=== PATIENT | male | born 1985 | race Caucasian/White ===

== ENCOUNTER 2017-02-08 11:39 | Emergency (ER) | payer OTHER ==
[~2017-02-08] VITALS: Ht 175.3 cm; Wt 111.9 kg
[2017-02-08 11:40] VITALS: TEMP 36.8; Ht 175.3 cm; Wt 111.9 kg
[2017-02-08] MEDS ORDERED: KETOROLAC TROMETHAMINE 30 MG/ML VIAL IV STA (12:26)
[2017-02-08] MEDS ORDERED: SODIUM CHLORIDE 0.9% 1000ML 1,000 ML IV STA (12:26)
--- NOTE | 2017-02-08 12:44 | DIAGNOSTIC IMAGING REPORT ---
SINGLE VIEW CHEST CLINICAL HISTORY: Atypical chest pain. FINDINGS: An AP, portable, upright chest radiograph is obtained No prior studies are available for comparison at the time of dictation. The heart is top normal for projection. The mediastinal contour is within normal limits. The lungs and pleural spaces are clear. No pneumothorax is seen. The bony thorax is grossly intact. IMPRESSION: No active disease in the chest. Electronically signed by: Tommy Martinez M.D. 02/08/2017 12:43 PM Dictated Date/Time: 02/08/2017 12:43 PM
[2017-02-08 12:52] LABS: HEMATOCRIT 45.7 % (42-52); MEAN CORPUSCULAR HEMOGLOBIN 31.7 pg (25-34); MEAN CORPUSCULAR HGB CONC 35.2 g/dl (32-36); MEAN PLATELET VOLUME 8.8 fL (7.4-10.4); PLATELET COUNT 435 K/uL (130-400); RED BLOOD COUNT 5.08 M/uL (4.7-6.1); WHITE BLOOD COUNT 9.71 K/uL (4.8-10.8)
[2017-02-08 13:08] LABS: BUN/CREATININE RATIO 2.7 (10-20); CALCIUM 9.1 mg/dl (8.5-10.1); CREATININE 1.2 mg/dl (0.60-1.40); POTASSIUM 3.6 mmol/L (3.5-5.1)
[2017-02-08 13:11] LABS: BENZODIAZEPINE, URINE NEG (NEG); COCAINE,URINE NEG (NEG); PHENCYCLIDINE, URINE POS (NEG)
[2017-02-08 13:19] LABS: THYROID STIMULATING HORMONE 1.2 uIu/ml (0.300-4.500)
[2017-02-08] MEDS ORDERED: PENICILLIN V POTASSIUM 250 MG TAB PO ONE (15:15)
[2017-02-08] MEDS ORDERED: HYDR-5688 PO (15:40)
[2017-02-08] MEDS ORDERED: PENI500T2 PO (15:40)
--- NOTE | 2017-02-08 15:42 | EMERGENCY ROOM VISIT NOTE ---
ED Visit Note First contact with patient: 12:02 CHIEF COMPLAINT: Chronic dental pain, radiating into her throat and chest. 2 days HISTORY OF PRESENT ILLNESS: Patient is a 31-year-old white male who presents to emergency department for evaluation of uncontrollable dental pain. He reports a history of chronic dental pain going back roughly 10 years. He states he has noted increasing pain, particularly from his upper central incisors over the last 48 hours. He notes blood and pus draining from the mouth. He states that the pain was radiating slightly to his neck/throat yesterday, but began to radiated into his right chest pain. He feels like he gags on occasion, but denies any difficulty swallowing. He has tried taking ibuprofen for his symptoms. He also used Orajel. He states that he recently pulled a tooth on his own. He had a consultation on [facility] a few years ago but he could not afford to have all of the teeth extracted. He has not been on antibiotics for about 2 years. He reports that he has been sick with cold and upper respiratory symptoms and has been using Coricidin and NyQuil. He does admit to frequent marijuana use, he smoked last last evening. He reports a history of asthma which is generally well controlled. He does smoke. He rates his dental pain a 9/10. REVIEW OF SYSTEMS: Review of systems as per HPI. All other systems reviewed were negative. 10 systems reviewed. PMH: Electronic medical records are reviewed and summarized as above/below. See Problem List. SOCIAL HISTORY: Patient lives at home. He is unemployed. Smokes cigarettes and marijuana. Denies alcohol use. PHYSICAL EXAM: Vital Signs: Reviewed Nurse's notes. Blood pressure in triage was 185/124. Remainder of the vital signs were stable. CONSTITUTIONAL: Patient is a diaphoretic 31-year-old white male who is awake and alert and in no acute distress. Vital signs are stable. EARS: Tympanic membranes intact, not inflamed, have normal contour. External canals clear. MOUTH: Overall the patient has poor dentition. Most of his teeth are grossly carious and fractured. The upper central incisors are eroded and fractured to the gumline. He has chronic gingival inflammation. No focal abscess. Mucous membranes moist, no lesions, tongue and gums appear normal. THROAT: No pharyngeal injection, exudates, or tonsillar hypertrophy. Airway is patent. No trismus noted. FACE: No facial swelling is appreciated. No cellulitic changes. NECK: No lymphadenopathy. HEART: Regular rate and rhythm. LUNGS: Clear to auscultation. ED course: The patient was seen and evaluated as above. He presents emergency department for evaluation of uncontrolled chronic dental pain. He reported some associated chest pain. He was noted to be diaphoretic. EKG was as noted below. Chest x-ray was unremarkable. CBC, BMP and TSH were within normal limits. The patient was medicated with a liter of normal saline solution, and given Toradol 30 mg IV and Pen-Vee K 500 mg orally. On reassessment, he reported that his symptoms had improved. He rated his pain a 0/10 at discharge. His symptoms appear to be related to his uncontrolled dental pain. He had relief with Toradol. He will be placed on antibiotics and was given [place] to use for severe pain until he can follow up with a dentist or oral surgeon. He does not have any evidence for facial cellulitis, Corwin's angina or drainable abscess at this time. Patient was reviewed in the [facility] Prescription Drug Monitoring Program, and there were no red flags noted. EKG: Normal sinus rhythm 79 beats per minute, no ectopy or acute ischemic changes. SINGLE VIEW CHEST CLINICAL HISTORY: Atypical chest pain. FINDINGS: An AP, portable, upright chest radiograph is obtained No prior studies are available for comparison at the time of dictation. The heart is top normal for projection. The mediastinal contour is within normal limits. The lungs and pleural spaces are clear. No pneumothorax is seen. The bony thorax is grossly intact. IMPRESSION: No active disease in the chest. Problem List Medical Problems: (1) Asthma Status: Chronic (2) Stomach problems Status: Chronic Current/Historical Medications Scheduled Penicillin V Potassium (Veetids), 500 MG PO QID Scheduled PRN Hydrocodone/Acetaminophen 5MG/325MG (Den[place] 5MG/325MG), 1-2 TABLETS PO Q4 PRN for Pain Allergies Coded Allergies: No Known Allergies (Unverified , 02/08/17) Vital Signs Date Time Temp Pulse Resp B/P Pulse Ox O2 Delivery O2 Flow Rate FiO2 02/08/17 15:54 68 20 159/112 96 Room Air 02/08/17 13:49 76 20 146/92 96 Room Air 02/08/17 12:54 79 02/08/17 11:40 36.8 95 18 185/124 98 Room Air Laboratory Results 02/08/17 12:40 02/08/17 12:40 Test 02/08/17 12:40 Red Blood Count 5.08 M/uL (4.7-6.1) Mean Corpuscular Volume 90.0 fL (80-100) Mean Corpuscular Hemoglobin 31.7 pg (25-34) Mean Corpuscular Hemoglobin Concent 35.2 g/dl (32-36) RDW Standard Deviation 43.8 fL (36.4-46.3) RDW Coefficient of Variation 13.4 % (11.5-14.5) Mean Platelet Volume 8.8 fL (7.4-10.4) Anion Gap 5.0 mmol/L (3-11) Est Creatinine Clear Calc Drug Dose 108.0 ml/min Estimated GFR () 91.5 Estimated GFR (Non- 79.0 BUN/Creatinine Ratio 2.7 (10-20) Calcium Level 9.1 mg/dl (8.5-10.1) Thyroid Stimulating Hormone (TSH) 1.200 uIu/ml (0.300-4.500) Urine Opiates Screen NEG (NEG) Urine Methadone, Qualitative NEG (NEG) Urine Barbiturates NEG (NEG) Ur Amphetamine/Methamphetamine NEG (NEG) MDMA (Ecstasy) Screen NEG (NEG) Urine Benzodiazepines Screen NEG (NEG) Urine Cocaine Metabolite NEG (NEG) Urine Marijuana (THC) POS (NEG) Medications Administered Medications (Trade) Dose Ordered Sig/John Route Start Time Stop Time Status Last Admin Dose Admin Ketorolac Tromethamine 30 mg 30 mg NOW STAT IV 02/08/17 12:26 02/08/17 12:30 DC 02/08/17 12:45 30 MG Sodium Chloride (Nss 1000ml) 1,000 ml @ 999 mls/hr Q1H1M STAT IV 02/08/17 12:26 02/08/17 13:26 DC 02/08/17 12:44 999 MLS/HR Penicillin V Potassium (Veetids Tab) 500 mg ONE ONCE PO 02/08/17 15:15 02/08/17 15:16 DC 02/08/17 15:17 500 MG Departure Information Impression Primary Impression: Chronic dental pain Prescriptions Hydrocodone/Acetaminophen 5MG/325MG ([place] 5MG/325MG) Tab 1-2 TABLETS PO Q4 Y for Pain, #15 TAB For Initial Treatment Prov: Clementina Tran PA 02/08/17 Penicillin V Potassium (VEETIDS) 500 Mg Tab 500 MG PO QID, #40 TAB Prov: Clementina Tran PA 02/08/17 Referrals No Doctor, Assigned (PCP) Patient Instructions My [facility] Additional Instructions Penicillin 500mg: Take one pill four times daily for 10 days for your dental infection. All antibiotics can cause diarrhea. If this occurs and you feel worse or it does not resolve in 1-2 days follow up with your doctor or return to the Emergency Department as this could be signs of serious underlying problems. Any medication can cause an allergic reaction, stop the pills immediately and return to the ER for rash, hives, breathing difficulties, or swelling. Ibuprofen(Motrin, Advil) may be used for fever or pain. Use 600mg every six hours as needed. Take with food. Avoid using more than 2400mg in a 24 hour period. Do not use 2400mg per day for more than three consecutive days without physician direction. Prolonged inappropriate use can lead to stomach upset or ulcers. (AND/OR) Acetaminophen(Tylenol) may be used for fever or pain. Use 1000mg every six hours as needed. Avoid using more than 4000mg in a 24 hour period. Hydrocodone/Acetaminophen ([place]) 5/325 mg: Take 1-2 pills every four hours for breakthrough pain. Avoid alcohol, operating machinery or dangerous equipment, working on ladders or roofs, DRIVING, or situations where being under the influence may be dangerous. It is recommended to use an [id number] stool softener such as Colace, 100mg twice daily while taking this medication to avoid constipation. Saltwater gargles after meals and before bedtime. Soft foods. Orajel/Anbesol/clove oil as needed for discomfort. Followup with your dentist for definitive management. You may also follow up with your primary care physician for pain/care management until you can be seen by your dentist.
[2017-02-08 15:54] VITALS: BP 159/112; PULSE 68; O2SAT 96
[2017-02-11 12:55] LABS: PHENCYCLIDINE GC/MS NEGATIVE NG/ML (CUTOFF=25)
[2017-08-17] MEDS ORDERED: LISI5TAB PO (10:58)
[2017-08-17] MEDS ORDERED: AMOX500C3 PO (10:58)
[2017-08-17] MEDS ORDERED: GLC/500 PO (10:58)
[2017-08-17] MEDS ORDERED: IBUP-1050 PO (10:59)
[2017-08-17] MEDS ORDERED: PRLSR20 PO (10:59)
== END 2017-02-08 16:09 | disposition home or self-care (01) ==
LOC: C.EDB 11:41 → C.EDC 16:09
DX: K08.89 Other specified disorders of teeth and supporting structures (principal); G89.29 Other chronic pain; F17.200 Nicotine dependence, unspecified, uncomplicated; F12.10 Cannabis abuse, uncomplicated; J45.909 Unspecified asthma, uncomplicated

== ENCOUNTER 2017-05-08 21:39 | Emergency (ER) | payer SELFPAY ==
[~2017-05-08] VITALS: Ht 182.9 cm; Wt 104.1 kg
[~2017-05-08 21:39] MED LIST: HYDR-5688 PO
[2017-05-08 21:51] VITALS: TEMP 36.7; Ht 182.9 cm; Wt 104.1 kg
[2017-05-08] MEDS ORDERED: PRLSR20 PO (22:10)
[2017-05-08] MEDS ORDERED: KETOROLAC TROMETHAMINE 60 MG/2 ML VIAL IM STA (22:11)
[2017-05-08] MEDS ORDERED: OXYCODONE IR HOME PACK PO ONE (22:15)
[2017-05-08] MEDS ORDERED: PENICILLIN V POTASSIUM 250 MG TAB PO ONE (22:15)
--- NOTE | 2017-05-08 22:16 | EMERGENCY ROOM VISIT NOTE ---
History Report prepared by Marlyn: Niranjan Thomas Under the Supervision of: Dr. Vasyl Fernandez M.D. First contact with patient: 21:57 Chief Complaint: DENTAL PAIN Stated Complaint: SEVERE PAIN FROM BAD TEETH Nursing Triage Summary: Patient ambulatory to triage, complaining of generalized dental pain, states "They started going bad a long time ago and have caused problems ever since." Patient was referred to [facility] in Dec. Patient has not seen the dentist yet. History of Present Illness The patient is a 32 year old male who presents to the Emergency Room with complaints of constant, worsening dental pain beginning a few months ago. The patient states that he has had bad teeth for years. He reports that he was seen in the ER for a similar symptoms. The patient notes that he has been trying to go [employer] and get an appointment with a dentist. He states that he does not have a dentist because he does not have insurance. The patient reports that he has been taking ibuprofen, but he could not take the pain anymore. He notes that he can not sleep or work. The patient states that he has migraines, fevers, pain when chewing, and seeing bright flashes of light. He denies chills , and trouble with speaking and swallowing. The patient notes that he smokes, uses alcohol occasionally, and uses marijuana. Source of History: patient Onset: few months ago Position: teeth Timing: constant, worsening Modifying Factors (Worsening): other (chewing) Associated Symptoms: + fevers, + headache, No chills Note: Associated symptoms: pain when chewing and seeing bright flashes of light He denies trouble with speaking and swallowing. Review of Systems See HPI for pertinent positives & negatives. A total of 10 systems reviewed and were otherwise negative. Past Medical & Surgical Medical Problems: (1) Asthma (2) Stomach problems Surgical Problems: (1) History of tonsillectomy and adenoidectomy Old medical records were reviewed. Nurse's notes were reviewed and I agree with. Family History FH: lung disease FHx: cancer Social History Smoking Status: Current Every Day Smoker Alcohol Use: occasionally Drug Use: marijuana Housing Status: lives with family Current/Historical Medications Scheduled Omeprazole (Prilosec), 20 MG PO DAILY Penicillin V Potassium (Veetids), 1 TAB PO QID Scheduled PRN Oxycodone Immediate Rel Tab (Roxicodone Ir), 1-2 TAB PO Q4H PRN for Severe Pain Allergies Coded Allergies: No Known Allergies (Unverified , 05/08/17) Physical Exam Vital Signs Date Time Temp Pulse Resp B/P (MAP) Pulse Ox O2 Delivery O2 Flow Rate FiO2 05/08/17 22:39 92 18 143/99 98 05/08/17 21:51 36.7 94 20 147/105 99 Room Air Physical Exam General: Non-ill appearing, no distress, young male, able to speak normally, breathing comfortably on room air. Normal speech HEENT: Normal cephalic atraumatic. Pupils are equal round and reactive to light. Extraocular movements are intact. Oropharynx is pink with moist mucous membranes. No abscess or Corwin angina, multiple advance dental caries. No swelling of the mouth lips or tongue. Neck: Supple with a midline trachea. No meningeal signs or stiffness, no JVD or bruits. No Stridor. Chest: Clear to auscultation bilaterally. No wheezes or rhonchi. No increased work of breathing. Heart: regular rate and rhythm. Abdomen: Soft nontender, nondistended without rebound guarding or rigidity. Extremities: No cyanosis clubbing or edema. No calf tenderness or assymetry Spine/Back. Non tender to palpation. No CVA tenderness Skin: Good turgor without rashes. Neurologic exam: Cranial nerves two through 12 are intact. Motor and sensation are intact and symmetrical throughout. Medical Decision & Procedures Medications Administered Medications (Trade) Dose Ordered Sig/John Route Start Time Stop Time Status Last Admin Dose Admin Ketorolac Tromethamine (Toradol Inj) 60 mg NOW STAT IM 05/08/17 22:11 05/08/17 22:13 DC 05/08/17 22:19 60 MG Penicillin V Potassium (Veetids Tab) 500 mg ONE ONCE PO 05/08/17 22:15 05/08/17 22:16 DC 05/08/17 22:19 500 MG Oxycodone HCl (Roxicodone Immediate Rel 5MG Home Pack) 1 homepack UD ONCE PO 05/08/17 22:15 05/08/17 22:16 DC 05/08/17 22:18 1 HOMEPACK ED Course 2156: Past medical records reviewed. The patient was evaluated in room B12B, and a complete history and physical examination were performed. 2210: Ordered Toradol Inj 60mg IM 2214: Ordered Oxycodone HCl 1 homepack PO, Veetids Tab 500mg PO 2215: Upon reevaluation, the patient is resting. I discussed the results and treatment plan with him. He verbalized agreement of the treatment plan. The patient was discharged home. Medical Decision Differential diagnosis includes: dental caries, infection, abscess Medication Reconciliation: I attest that I have personally reviewed the patient' s current medication list. Blood Pressure Screening: Patient was found to have a slightly elevated blood pressure due to circumstances. I do not believe that the patient requires hypertension monitoring. This patient comes in as described above . he has very poor dentition and multiple of as dental caries many of which need to be pulled. He's had some pain. He is trying to get in with a dentist at [facility]. On exam, he has no evidence to suggest abscess or Corwin's angina. I will put on Pen-Vee K, the first dose was given here, as well as a prescription. He was also given Toradol 60 mg IM and I encouraged him to continue using ibuprofen for breakthrough pain. He was given a prescription for OxyIR 5 mg, one or 2 pills every 4-6 hours as needed. He was warned that that OxyIR could make him drowsy and do not take for drinking, driving, working. He should return if: increasing pain , worsening of symptoms, shortness ofbreath, any new problems or concerns and have close follow-up with [facility]/dentistry. He was happy with the plan and was discharged to home. Impression Primary Impression: Tooth ache Additional Impression: Dental caries Scribe Attestation The scribe's documentation has been prepared under my direction and personally reviewed by me in its entirety. I confirm that the note above accurately reflects all work, treatment, procedures, and medical decision making performed by me. Departure Information Dispostion Home / Self-Care Prescriptions Penicillin V Potassium (VEETIDS) 500 Mg Tab 1 TAB PO QID for 10 Days, #40 TAB Prov: Vasyl Fernandez M.D. 05/08/17 Oxycodone Immediate Rel Tab (ROXICODONE IR) 5 Mg Tab 1-2 TAB PO Q4H Y for Severe Pain, #24 TAB Prov: Vasyl Fernandez M.D. 05/08/17 Referrals No Doctor, Assigned (PCP) Forms HOME CARE DOCUMENTATION FORM, IMPORTANT VISIT INFORMATION Patient Instructions My [facility] Additional Instructions Rest. Drink plenty of fluids. For pain, use ibuprofen 400 mg every 6 hours, take with food For more severe pain, use OxyIR 5 mg, one or 2 pills every 4-6 hours as needed OxyIR may make you drowsy- do not take before drinking, driving, working Return if: Increasing pain, worsening of symptoms, fever or chills, any new problems or concerns. Use Pen-Vee K 500 mg 4 times a dayantibiotic Follow-up with your dentist/[facility] this week for recheck. You will likely need multiple teeth pulled Problem Qualifiers
[2017-05-08] MEDS ORDERED: OXYC1TAB3 PO (22:23)
[2017-05-08] MEDS ORDERED: PENI500T2 PO (22:23)
[2017-05-08 22:39] VITALS: BP 143/99; PULSE 92; O2SAT 98
[2017-08-17] MEDS ORDERED: AMOX500C3 PO (10:58)
[2017-08-17] MEDS ORDERED: LISI5TAB PO (10:58)
[2017-08-17] MEDS ORDERED: GLC/500 PO (10:58)
[2017-08-17] MEDS ORDERED: IBUP-1050 PO (10:59)
[2017-08-17] MEDS ORDERED: PRLSR20 PO (10:59)
== END 2017-05-08 22:40 | disposition home or self-care (01) ==
LOC: C.EDB 21:41
DX: K08.89 Other specified disorders of teeth and supporting structures (principal); K02.9 Dental caries, unspecified; J45.909 Unspecified asthma, uncomplicated; F17.200 Nicotine dependence, unspecified, uncomplicated; F12.90 Cannabis use, unspecified, uncomplicated

== ENCOUNTER → 2017-08-24 | Day surgery (SDC) | payer SELFPAY ==
[2017-08-17 11:00] VITALS: BMI 31.0
[~2017-08-24] VITALS: Ht 182.9 cm; Wt 102.7 kg
[~2017-08-24] MED LIST changes: +AMOX500C3 PO; +GLC/500 PO; -HYDR-5688 PO; +IBUP-1050 PO; +LIDOCAINE HCL 2% 2 ML VIAL (20MG/ML) ONE; +LISI5TAB PO; +MIDAZOLAM HCL 1 MG/ML 2ML VIAL ONE; +PRLSR20 PO; +PROPOFOL IV EMULSION 10 MG/ML 20 ML VIAL IV ONE; +SODIUM CHLORIDE 0.9% 500ML 500 ML IV ONE
[2017-08-24 10:09] VITALS: Ht 182.9 cm; Wt 102.7 kg
--- NOTE | 2017-08-24 10:31 | Endo History and Physical ---
History & Physical Date of Service: Aug 24, 2017. Chief Complaint: abd pain; rectal bleeding Referring Physician: KEV Jason History of Present Illness abd pain and rectal bleeding Past Surgical History Hx Cardiac Surgery: No Hx Internal Defibrillator: No Hx Pacemaker: No Hx Abdominal Surgery: No Hx of Implantable Prosthesis: No Hx Post-Op Nausea and Vomiting: No Hx Cancer Surgery: No Hx Thoracic Surgery: No Hx Orthopedic: No Hx Urinary Tract Surgery: No Family History None Social History Smoking Status: Current Every Day Smoker Hx Substance Use: Yes (MARIJUANA USE "EVERY COUPLE OF DAYS") Hx Alcohol Use: Yes (OCCASIONAL) Allergies Coded Allergies: No Known Allergies (Unverified , 08/24/17) Current Medications Reported Home Medications Medications Dose Route/Sig Max Daily Dose Days Date Category Advil (Ibuprofen) 200 Mg Tab 200-600 Mg PO Q4H PRN 08/17/17 Reported Prilosec (Omeprazole) 20 Mg Capcr 20 Mg PO DAILY PRN 08/17/17 Reported Prinivil (Lisinopril) 5 Mg Tab 5 Mg PO QAM 08/17/17 Reported Glucophage (Metformin Hcl) 500 Mg Tab 500 Mg PO QPM 08/17/17 Reported Vital Signs Weight (Kilograms): 102.73 Height (Feet): 6 Height (Inches): 0 Date Time Temp Pulse Resp B/P (MAP) Pulse Ox O2 Delivery O2 Flow Rate FiO2 08/24/17 10:19 36.9 92 18 126/84 (98) 92 Room Air Physical Exam General Appearance: WD/WN, no apparent distress Assessment and Plan EGD and colonoscopy today
--- NOTE | 2017-08-24 11:19 | GI REPORT ---
Procedure Date: 08/24/2017 10:16 AM Procedure: Upper GI endoscopy Indications: Epigastric abdominal pain Medicines: Propofol per Anesthesia Complications: No immediate complications. Estimated blood loss: None. Estimated Blood Loss: Estimated blood loss: none. Procedure: Pre-Anesthesia Assessment: - Prior to the procedure, a History and Physical was performed, and patient medications, allergies and sensitivities were reviewed. The patient's tolerance of previous anesthesia was reviewed. - The risks and benefits of the procedure and the sedation options and risks were discussed with the patient. All questions were answered and informed consent was obtained. - Patient identification and proposed procedure were verified prior to the procedure by the physician and the nurse. The procedure was verified in the pre-procedure area in the procedure room. - Mental Status Examination: alert and oriented. Airway Examination: normal oropharyngeal airway and neck mobility. Respiratory Examination: clear to auscultation. CV Examination: normal. Abdominal Examination: bowel sounds present, abdomen soft and non-tender, no masses or organomegaly noted. - ASA Grade Assessment: III - A patient with severe systemic disease. After obtaining informed consent, the endoscope was passed under direct vision. Throughout the procedure, the patient's blood pressure, pulse, and oxygen saturations were monitored continuously. The scope was introduced through the mouth, and advanced to the second part of duodenum. The upper GI endoscopy was accomplished without difficulty. The patient tolerated the procedure well. Findings: The esophagus was normal. The stomach was normal. The examined duodenum was normal. Impression: - Normal esophagus. - Normal stomach. - Normal examined duodenum. - No specimens collected. Recommendation: - Follow an antireflux regimen. STOP DRINKING MT. DEW - Continue present medications. - Return to primary care physician as previously scheduled. - Discharge patient to home. Darshana Martin D.O. Darshana Martin DO 08/24/2017 11:19:02 AM This report has been signed electronically. Note Initiated On: 08/24/2017 10:16 AM I attest to the content of the Intraoperative Record and orders documented therein, exceptions below
--- NOTE | 2017-08-24 11:21 | GI REPORT ---
Procedure Date: 08/24/2017 10:17 AM Procedure: Colonoscopy Indications: Rectal bleeding Medicines: Propofol per Anesthesia Complications: No immediate complications. Estimated blood loss: None. Estimated Blood Loss: Estimated blood loss: none. Procedure: Pre-Anesthesia Assessment: - Prior to the procedure, a History and Physical was performed, and patient medications, allergies and sensitivities were reviewed. The patient's tolerance of previous anesthesia was reviewed. - The risks and benefits of the procedure and the sedation options and risks were discussed with the patient. All questions were answered and informed consent was obtained. - Patient identification and proposed procedure were verified prior to the procedure by the physician and the nurse. The procedure was verified in the pre-procedure area in the procedure room. - Mental Status Examination: alert and oriented. Airway Examination: normal oropharyngeal airway and neck mobility. Respiratory Examination: clear to auscultation. CV Examination: normal. Abdominal Examination: bowel sounds present, abdomen soft and non-tender, no masses or organomegaly noted. - ASA Grade Assessment: III - A patient with severe systemic disease. After I obtained informed consent, the scope was passed under direct vision. Throughout the procedure, the patient's blood pressure, pulse, and oxygen saturations were monitored continuously. The scope was introduced through the anus and advanced to the terminal ileum. The colonoscopy was performed without difficulty. The patient tolerated the procedure well. The quality of the bowel preparation was good. Findings: The perianal and digital rectal examinations were normal. Pertinent negatives include normal sphincter tone and no palpable rectal lesions. The terminal ileum appeared normal. Internal hemorrhoids were found during retroflexion. The hemorrhoids were medium-sized and Grade I (internal hemorrhoids that do not prolapse). Impression: - The examined portion of the ileum was normal. - Internal hemorrhoids. - No specimens collected. Recommendation: - Return to primary care physician as previously scheduled. - Discharge patient to home. Darshana Martin D.O. Darshana Martin DO 08/24/2017 11:21:03 AM This report has been signed electronically. Note Initiated On: 08/24/2017 10:17 AM I attest to the content of the Intraoperative Record and orders documented therein, exceptions below
--- NOTE | 2017-08-24 11:34 | Discharge Instructions ---
Endoscopy Patient Instructions Date / Procedure(s) Performed Aug 24, 2017. Colonoscopy, EGD Allergy Information Coded Allergies: No Known Allergies (Unverified , 08/24/17) Discharge Date / Findings Aug 24, 2017. normal EGD; internal hemorrhoids Medication Instructions Restart Stopped Medication(s): OK to resume home medications Avoid anti-inflammatory medications as much as possible (ibuprofen, Aleve, etc) Provider Instructions Activity Restrictions - No exercising or heavy lifting for 24 hours. - Do not drink alcohol the day of the procedure. - Do not drive a car or operate machinery until the day after the procedure. - Do not make any important decisions or sign important papers in 24 hours after the procedure. Following Day: - Return to full activity which may include returning to work/school. Diet Start your diet with liquids and light foods (jello, soup, juice, toast). Then eat your usual diet if not nauseated. STOP DRINKING MT. DEW and all other caffeinated/carbonated beverages. Treatment For Common After Affects For mild abdominal pain, bloating, or excessive gas: - Rest - Eat lightly - Lie on right side Follow-Up Information Follow-up with [facility] as scheduled Anesthesia Information What You Should Know You have had a procedure that required some medicine to reduce anxiety and discomfort. This treatment is called moderate sedation. After receiving the treatment, you may be sleepy, but you will be able to breathe on your own. The effects of the treatment may last for several hours. Follow these instructions along with Activity/Diet recommendations noted above: * Do NOT do anything where dizziness or clumsiness would be dangerous. * Rest quietly at home today, then you can be up and about tomorrow. * Have a responsible person stay with you the rest of today. * You may have had an I.V. today. If so, you may take the dressing off later today. Recommendations Call your doctor if: * Trouble breathing * Continuous vomiting for more than 24 hours * Temperature above 101 degrees * Severe abdominal pain or bloating * Pain not relieved by pain medicine ordered * There is increased drainage or redness from any incision * A large amount of rectal bleeding greater than 2-3 tablespoons. (If you had a polyp/s removed or have hemorrhoids, a small amount of blood - from the rectum is to be expected.) * You have any unanswered questions or concerns. IN THE EVENT OF A SERIOUS EMERGENCY, GO TO THE NEAREST EMERGENCY ROOM Your discharge instructions were prepared by provider Darshana Martin. Patient Instructions Signature Page Asad Crowe Patient (or Guardian) Signature/Date: I have read and understand the instructions given to me by my caregivers. Caregiver/RN/Doctor Signature/Date: The above-named patient and/or guardian has received patient instructions on this date. + Original Patient Signature Page (only) stays with chart. Please make copy for patient.
--- NOTE | 2017-08-24 11:41 | Anesthesiology Progress Note ---
Anesthesia Post Op Note Date & Time Aug 24, 2017 at 11:41 Vital Signs Pain Intensity: 0 Vital Signs Past 12 Hours Date Time Temp Pulse Resp B/P (MAP) Pulse Ox O2 Delivery O2 Flow Rate FiO2 08/24/17 11:32 65 16 124/77 (93) 97 Oxymask 6 08/24/17 11:24 74 16 120/82 (95) 95 Oxymask 6 08/24/17 11:17 85 14 110/85 (93) 94 Room Air 08/24/17 10:19 36.9 92 18 126/84 (98) 92 Room Air Notes Mental Status: alert / awake / arousable, participated in evaluation Pt Amnestic to Procedure: Yes Nausea / Vomiting: adequately controlled Pain: adequately controlled Airway Patency, RR, SpO2: stable & adequate BP & HR: stable & adequate Hydration State: stable & adequate Anesthetic Complications: no major complications apparent Doing well. Had a vagal episode during procedure that resolved without intervention. VSS
[2017-08-24 11:47] VITALS: BP 131/96; PULSE 71; O2SAT 98
== END | disposition home or self-care (01) ==
LOC: C.GI 09:50 → EDSTATUS 10:15 → C.GI 10:17
PROVIDERS: ATTEND Internal Medicine
DX: K62.5 Hemorrhage of anus and rectum (principal); R10.13 Epigastric pain; E66.9 Obesity, unspecified; I10 Essential (primary) hypertension; J45.909 Unspecified asthma, uncomplicated; Z68.31 Body mass index [BMI] 31.0-31.9, adult; E11.9 Type 2 diabetes mellitus without complications; Z90.89 Acquired absence of other organs

== ENCOUNTER 2019-09-17 10:38 | Observation (INO) ==
[2019-09-17] MEDS ORDERED: LIDO/EPINEPHRINE/SOD BICARB 20 ML VIAL ONE (12:01)
[2019-09-17] MEDS ORDERED: VANCOMYCIN HCL 2,500 MG in SODIUM CHLORIDE 0.9% 500 ML IV ONE (12:08)
[2019-09-17] MEDS ORDERED: VANCOMYCIN CONSULT ACTIVE PRN ×2 (12:08→16:09)
[2019-09-17] MEDS ORDERED: cefTRIAXone SODIUM 1,000 MG/50 ML BAG IV STA (12:08)
[2019-09-17] MEDS ORDERED: SODIUM CHLORIDE 0.9% 1000ML 2,000 ML IV ONE (12:08)
[2019-09-17 12:38] LABS: Basophils # (auto) 0.06 K/uL (0-0.2); Basophils % (auto) 0.4 %; Eosinophils # (auto) 0.13 K/uL (0-0.5); Eosinophils % (auto) 0.9 %; Hematocrit (blood only) 44.8 % (42-52); Hemoglobin 15.8 g/dL (14.0-18.0); Immature Granulocytes # (auto) 0.04 K/uL (0.00-0.02); Immature Granulocytes % (auto) 0.3 %; Lymphocytes # (auto) 3.73 K/uL (1.2-3.4); Lymphocytes % (auto) 25.3 %; Mean Corpuscular Hemoglobin 31.9 pg (25-34); Mean Corpuscular Hgb Conc 35.3 g/dL (32-36); Mean Corpuscular Volume 90.5 fL (80-100); Mean Platelet Volume 9.5 fL (7.4-10.4); Monocytes # (auto) 1.32 K/uL (0.11-0.59); Monocytes % (auto) 8.9 %; Neutrophils # (auto) 9.48 K/uL (1.4-6.5); Neutrophils % (auto) 64.2 %; Platelet Count 367 K/uL (130-400); RDW Coefficient of Variation 12.8 % (11.5-14.5); RDW Standard Deviation 42.1 fL (36.4-46.3); Red Blood Count 4.95 M/uL (4.7-6.1); White Blood Count 14.76 K/uL (4.8-10.8)
[2019-09-17 12:47] LABS: Partial Thromboplastin Time 26.8 Seconds (21.0-31.0); Prothrombin Time 10.1 Seconds (9.0-12.0)
[2019-09-17 13:08] LABS: Albumin Globulin Ratio 0.9 (0.9-2); Albumin Level 4.1 gm/dl (3.4-5.0); BUN Creatinine Ratio 3.3 (10-20); Bilirubin,Total 0.6 mg/dl (0.2-1); Calcium 9.9 mg/dl (8.5-10.1); Creatinine Clr Calc Pharmacy 103.8 ml/min; Est GFR (African American) 89.6; Est GFR (Non-African American) 77.3; Globulin 4.8 gm/dl (2.5-4.0); Potassium 3.3 mmol/L (3.5-5.1); Total Protein 8.9 gm/dl (6.4-8.2)
[2019-09-17] MEDS ORDERED: POTASSIUM CHLORIDE 20 MEQ TABCR PO STA (13:09)
[2019-09-17] MEDS ORDERED: POTASSIUM CHLORIDE / WTR 10 MEQ/100 ML PLCT IV ONE (13:09)
[2019-09-17] MEDS ORDERED: NovoLIN-R INSULIN PER UNIT CHARGE IV STA (13:10)
[2019-09-17] MEDS ORDERED: MoRPHine SULFATE 4 MG/ML 1 ML CARP\\VIAL IV STA (13:31)
--- NOTE | 2019-09-17 13:34 | History & Physical Report ---
Date of Service September 17, 2019 Assessment & Plan (1) Cellulitis of back: We will start the patient on IV vancomycin and Rocephin and also doxycycline. Consult infectious disease. Check wound culture. Check blood cultures. Present on Admission?: Yes (2) Tick bite of back: Check Lyme serology. ID consulted. Patient started on doxycycline. (3) Type 2 diabetes mellitus: Add Sliding-scale insulin per protocol with Accu-Cheks q. before meals and at bedtime Present on Admission?: Yes (4) Hypothyroidism: Continue Synthroid Present on Admission?: Yes (5) Hypertension: Continue home medications. Add IV hydralazine PRN basis for uncontrolled hypertension. Present on Admission?: Yes (6) Hyperglycemia due to type 1 diabetes mellitus: Add gentle IV fluids. Continue sliding-scale insulin. (7) Hypokalemia: Add potassium supplements. (8) Noncompliance with medication regimen: Patient advised regarding compliance of medications. (9) Tobacco abuse: Smoking cessation advised. Does not want to use nicotine patch. No intention to quit smoking. Present on Admission?: Yes (10) GERD (gastroesophageal reflux disease): Continue Zantac. Present on Admission?: Yes (11) Hyperlipidemia: Continue with Lipitor. Present on Admission?: Yes (12) Leucocytosis: Secondary to underlying cellulitis and abscess of back We will repeat labs in a.m. Present on Admission?: Yes History of Present Illness Chief Complaint: Swelling and redness and lesion of the back Primary Care Provider: Ramsey Celis, The patient is 34-year-old male who went for hunting last Monday. When he came back home his father noticed a tick on his back and removed it. After that he noticed worsening redness, swelling and pain of the right upper back. His symptoms continued to get worse. The patient has not been taking his home medication for 2 days as he was not feeling well. He presented to the ER today., he was found to be having cellulitis and possible abscess of the back. Wound cultures were sent. He was started on IV antibiotics and will be admitted for further evaluation and management. His blood sugar and blood pressure has been running high, probably because he has not taken his home medications, and medication noncompliance. Allergies Allergy/AdvReac Type Severity Reaction Status Date / Time No Known Allergies Allergy Unverified 09/17/19 13:11 Home Medications Home Medications Medication Instructions Recorded Confirmed Type atorvastatin 20 mg PO HS 07/11/19 09/17/19 History metformin 500 mg PO BIDM 07/11/19 09/17/19 History lisinopril 20 mg tablet 20 mg PO DAILY #90 tab 09/04/19 09/17/19 Rx levothyroxine 75 mcg PO QPM 09/17/19 09/17/19 History ranitidine HCl [Zantac] 150 mg PO BID PRN 09/17/19 09/17/19 History Past Med/Surg History Medical History Diabetes Hypertension Surgical History History of adenoidectomy History of oral surgery History of tonsillectomy Family History Grandmother (Maternal) Cancer Grandfather Myocardial infarction Lung cancer Drug abuse Other Kidney disease Social History Preferred Language: Tanzanian Communication Ability: Effective Dietician Required: No Beliefs That Will Affect Care: None marital status: Single Current Living Situation: Parent Current Living Situation Comment: w/ father current occupational status: unemployed Other Information That Helps Us Care for You: No Feels Safe at Home: Yes Safety Concerns: Feels Safe At This Time Smoking Status: Current every day smoker Tobacco Type: cigarettes ; Age Started Using Tobacco: 11 ; packs per day: 2 ; Cigarettes Per Day: 40 ; Do You Dip or Chew Tobacco: No ; Second Hand Exposure: No ; Tobacco Cessation Education Requested by Patient: No Hx Alcohol Use: Yes Alcohol type: beer and hard liquor Alcohol Intake Frequency: Rarely Hx Substance Use: Yes substance use type: marijuana Last Used Substance: Unknown Last Used Substance Other:: history of use Childhood Exposure to Second-Hand Smoke: Yes Dental Care, Regularly: Yes Review of Systems Review of Systems: All systems reviewed & are unremarkable except as noted in HPI & below Integumentary: + rash, + lesions and + erythema Physical Exam Physical Exam: GENERAL : No acute distress EYES: No icterus, gaze conjugate NOSE: No evidence of epistaxis MOUTH: No lesions or candidiasis, mucosa moist NECK: Supple LUNGS: CTA B/L, no wheezes, rales or rhonchi HEART: Regular, rate controlled ABDOMEN: Soft, NT, ND, BS Present EXTREMITIES: No LE edema, pedal pulses intact NEURO: A&OX3 Back examination reveals cellulitis and possible underlying abscess on the upper back right side Results & Data Vital Signs (Past 12 Hours) Vital Signs Temp Pulse Pulse Resp BP BP Pulse Ox 09/17/19 13:07 98.8 F 89 22 152/110 H 98 09/17/19 10:41 98.4 F 97 H 18 165/100 H 98 Laboratory Results 09/17/19 12:16 09/17/19 12:16 PG Care Time/CCT Total # of Minutes Spent Total Time Spent with Patient: Total time spent is greater than 50% in coordination of care (as documented) at patient's floor/unit and/or counseling patient:
[2019-09-17] MEDS ORDERED: ALUMINUM/MAGNESIUM SUSP 30 ML UDC PO PRN (16:09)
[2019-09-17] MEDS ORDERED: MAGNESIUM HYDROXIDE SUSP 30 ML UDC PO PRN (16:09)
[2019-09-17] MEDS ORDERED: ONDANSETRON INJ 2 MG/ML 2 ML VIAL IV PRN (16:09)
[2019-09-17] MEDS ORDERED: cefTRIAXone SODIUM 1,000 MG in DEXTROSE 5% 50 ML IV SCH (16:09)
[2019-09-17] MEDS ORDERED: POLYETHYLENE (MIRALAX) 17 GM PACK PO PRN (16:09)
[2019-09-17] MEDS ORDERED: ACETAMINOPHEN 325 MG TAB PO PRN (16:09)
[2019-09-17] MEDS ORDERED: ZOLPIDEM TARTRATE 5 MG TAB PO PRN (16:09)
[2019-09-17] MEDS ORDERED: HydrALAZINE HCL 20 MG/ML VIAL IV PRN (16:09)
[2019-09-17 16:43] LABS: Lyme Ab IgG w/WB Rflx Negative (Negative); Lyme Ab IgM w/WB Rflx Negative (Negative)
[2019-09-17] MEDS ORDERED: GLUCOSE 10 TABS/TUBE PO PRN (16:45)
[2019-09-17] MEDS ORDERED: GLUCAGON FOR INJ 1 MG VIAL IM PRN (16:45)
[2019-09-17] MEDS ORDERED: CARBOHYDRATES FOR HYPOGLYCEMIA PO PRN (16:45)
[2019-09-17] MEDS ORDERED: DEXTROSE 50% 50 ML SYRINGE IV PRN (16:45)
[2019-09-17] MEDS ORDERED: GLUCOSE 40% GEL 15 GM TUBE PO PRN (16:45)
[2019-09-17] MEDS ORDERED: TRAMADOL HCL 50 MG TABLET PO PRN (16:58)
[2019-09-17] MEDS ORDERED: IBUPROFEN 200 MG TAB PO PRN (16:59)
--- NOTE | 2019-09-17 17:01 | Pharmacy Report ---
Pharmacy Abx Initial Consult - Date of Service September 17, 2019 - Pharmacy Dosing Scope Date of Consult: 09/17/19 Consultation requested by: Dr. Murdock Pharmacy is consulted to initiate VANCOMYCIN IV/PO dosing therapy, order appropriate labs and adjust drug dose/frequency. - Subjective The patient is a 34 year old M admitted on 09/17/19 13:25. - Objective Height: 6 ft Weight: 99.1 kg Vital Signs (Past 12hrs): Vital Signs Temp Pulse Pulse Resp BP BP Pulse Ox 09/17/19 15:50 37.4 C 88 18 142/95 H 97 09/17/19 15:28 37.5 C 81 20 126/92 97 09/17/19 13:07 37.1 C 89 22 152/110 H 98 09/17/19 10:41 36.9 C 97 H 18 165/100 H 98 Lab Results (24hrs): Laboratory Tests (24 Hours) 09/17/19 09/17/19 12:16 12:16 WBC 14.76 H Neut # (Auto) 9.48 H Creatinine 1.20 Est Cr Clr Drug Dosing 103.8 Micro Results: 09/17/19 Unknown Gram Stain - Final Back Wound Culture - Pending 09/17/19 12:27 Aerobic Blood Culture - Pending Blood Anaerobic Blood Culture - Pending 09/17/19 12:16 Aerobic Blood Culture - Pending Blood Anaerobic Blood Culture - Pending - Assessment & Plan Assessment 34 year old M receiving VANCOMYCIN/ROCEPHIN/DOXYCYCLINE for back cellulitis/abscess s/p tick bite. Plan VANCOMYCIN for treatment of CELLULITIS/ABSCESS Vancomycin IV * Estimated PK Parameters: Vd 0.7L/kg, Kraig 0.090 hr-1, t1/2 ~8 hr * Loading dose: 2500mg (25 mg/kg) * Maintenance dose: 1500mg IV (15 mg/kg) every 10 hours * Goal trough level for CELLULITIS : 15 to 20 mcg/mL * Trough level ordered for 09/18/19 @ 1900. Pharmacy will continue to follow and will adjust dose/frequency as necessary. Thank you.
--- NOTE | 2019-09-17 17:05 | Emergency Department Note ---
Entered by Joellen Stevens acting as a scribe for Walt Phelps DO History of Present Illness General Chief complaint: Bite Stated complaint: TICK BITE, PAIN, FEVER, TIM Source: patient History of Present Illness Provider complaint: skin pain on back Onset (ago): day(s) 4 Location: back Radiation: non-radiation Pain Consistency: + constant Maximum Pain Intensity: 9 Quality: + other (sore ) Exacerbated By: + other (touch) Associated symptoms: + denies other symptoms The patient is a 34 y/o male with a past medical history of diabetes and hypertension, who presents to the emergency department for evaluation of constant pain to skin on back that began 4 days ago. The patient states that he was hunting on Monday and when he came [place] there was a tick on his back that his father pulled off. The patient states that when the tick was removed there was no redness or pain. For the past two days he notes an intermittent fever and the area swelling. He also states that his whole base of his right foot went numb last night which has yet to resolve. The patient states he has had a little cough and sneezing since the fever started. He reports a mild headache currently. The patient denies urinary symptoms, abdominal pain, and any other symptoms. Home Medications Home Medications Medication Instructions Recorded Confirmed Type atorvastatin 20 mg PO HS 07/11/19 09/17/19 History metformin 500 mg PO BIDM 07/11/19 09/17/19 History lisinopril 20 mg tablet 20 mg PO DAILY #90 tab 09/04/19 09/17/19 Rx levothyroxine 75 mcg PO QPM 09/17/19 09/17/19 History ranitidine HCl [Zantac] 150 mg PO BID PRN 09/17/19 09/17/19 History Allergies Allergy/AdvReac Type Severity Reaction Status Date / Time No Known Allergies Allergy Unverified 09/17/19 13:11 Past Med/Surg History Medical History Diabetes Hypertension Surgical History History of adenoidectomy History of oral surgery History of tonsillectomy Family History Grandmother (Maternal) Cancer Grandfather Myocardial infarction Lung cancer Drug abuse Other Kidney disease Social History Preferred Language: Nepali Communication Ability: Effective Document Image Technician Required: No Beliefs That Will Affect Care: None marital status: Single Current Living Situation: Parent Current Living Situation Comment: w/ father current occupational status: unemployed Feels Safe at Home: Yes Smoking Status: Current every day smoker Tobacco Type: cigarettes ; Age Started Using Tobacco: 11 ; packs per day: 2 ; Cigarettes Per Day: 40 ; Second Hand Exposure: No ; Hx Alcohol Use: Yes Alcohol type: beer and hard liquor Alcohol Intake Frequency: Rarely Hx Substance Use: Yes substance use type: marijuana Last Used Substance: Unknown Childhood Exposure to Second-Hand Smoke: Yes Dental Care, Regularly: Yes Review of Systems See HPI for pertinent positives & negatives. and A total of 10 systems reviewed and were otherwise negative Physical Exam Vital Signs Vital Signs - 24 hr 09/17/19 10:41 09/17/19 12:23 09/17/19 13:07 Temperature 36.9 C 37.1 C Temperature Source Oral Oral Sepsis Recent Fever Within 48 Hours No Sepsis New/Unexplained Change in Mental Status No Sepsis Action Taken by Nursing No Action Required Pulse Rate 97 H Pulse Rate [Right Finger] 89 Pulse Rhythm [Right Finger] Regular Pulse Strength [Right Finger] Normal Respiratory Rate 18 22 Respiratory Effort / Characteristics Non-Labored Spontaneous Respiratory Depth Normal Respiratory Pattern Regular Blood Pressure 165/100 H Blood Pressure [Right Arm] 152/110 H Blood Pressure Mean 121 Blood Pressure Mean [Right Arm] 124 Pulse Oximetry 98 98 Oxygen Delivery Method Room Air Room Air Room Air GENERAL: Sitting up in bed, diaphoretic, talking in full sentences EYE EXAM: normal conjunctiva. OROPHARYNX: no exudate, no erythema, lips, buccal mucosa, and tongue normal and mucous membranes are moist NECK: supple, no nuchal rigidity, no adenopathy, non-tender LUNGS: Clear to auscultation. Normal chest wall mechanics HEART: Tachycardic, no murmurs, S1 normal and S2 normal ABDOMEN: abdomen soft, non-tender, normo-active bowel sounds, no masses, no rebound or guarding. BACK: Back is symmetrical on inspection and there is no deformity, no midline tenderness, no CVA tenderness. 10cm by 10cm with an area of 4 cm by 5 cm with multiple pustules and induration. On medial to right scapula. SKIN: no rashes and no bruising UPPER EXTREMITIES: upper extremities are grossly normal. LOWER EXTREMITIES: No pitting edema. NEURO EXAM: Normal sensorium, cranial nerves II-XII intact, normal speech, no weakness of arms, no weakness of legs. Course ED COURSE: Vital signs were reviewed and showed hypertensive The patients medical record was reviewed The above diagnostic studies were performed and reviewed. ED treatments and interventions as stated above. 1156: The patient was evaluated in room C05. A complete history and physical examination was performed. 1314: I spoke with Dr. Eloy SNOWDEN. Will evaluate with further management. 1317: Upon reevaluation, the patient is feeling a bit better. I discussed my findings with the patient and he understands and agrees with the treatment plan. Based on the patients age, coexisting illnesses, exam and lab findings the decision to treat as an inpatient was made. The patient remained stable while under my care. The patient will be evaluated for further management. Administered Medications Discontinued Medications Sodium Chloride (Nss 1000ml) 2,000 mls @ 999 mls/hr IV .Q2H1M ONE Stop: 09/17/19 14:08 Last Infusion: 09/17/19 15:13 Dose: 0 mls/hr Documented by: [id number] Admin: 09/17/19 12:40 Dose: 999 mls/hr Documented by: [id number] Vancomycin HCl 2,500 mg/ (Sodium Chloride) 550 mls @ 200 mls/hr IV NOW ONE Stop: 09/17/19 14:52 Last Infusion: 09/17/19 15:28 Dose: 0 mls/hr Documented by: [id number] Admin: 09/17/19 12:40 Dose: 200 mls/hr Documented by: [id number] Ceftriaxone Sodium (Rocephin) 1,000 mg in 50 mls @ 100 mls/hr IV NOW STA Stop: 09/17/19 12:37 Last Infusion: 09/17/19 13:30 Dose: 0 mls/hr Documented by: [id number] Admin: 09/17/19 12:48 Dose: 100 mls/hr Documented by: [id number] Potassium Chloride (K Bebeto / Wtr) 10 meq in 100 mls @ 100 mls/hr IV ONE ONE Stop: 09/17/19 14:08 Last Infusion: 09/17/19 14:31 Dose: 0 mls/hr Documented by: [id number] Admin: 09/17/19 13:28 Dose: 100 mls/hr Documented by: [id number] Insulin Human Regular (Novolin R U-100 Per Unit) 6 units IV NOW STA Stop: 09/17/19 13:11 Last Admin: 09/17/19 13:25 Dose: 6 units Documented by: [id number] Cosigned by: [id number] Lidocaine/Epinephrine (Buffered Xylocaine/Epinephrine 1%) Confirm Administered Dose 20 ml .ROUTE .STK-MED ONE Stop: 09/17/19 12:02 Last Admin: 09/17/19 12:48 Dose: Not Given Documented by: [id number] Morphine Sulfate (Morphine Sulfate) 4 mg IV NOW STA Stop: 09/17/19 13:32 Last Admin: 09/17/19 13:36 Dose: 4 mg Documented by: [id number] Potassium Chloride (Klor-Con M20) 40 meq PO NOW STA Stop: 09/17/19 13:10 Last Admin: 09/17/19 13:28 Dose: 40 meq Documented by: [id number] Medical Decision Making Differential Diagnosis Differential diagnosis: Etiologies such as sepsis, UTI, pneumonia, bacteremia, metabolic process, electrolyte abnormalities, cardiac sources, intracerebral event, intra-abdominal process, toxicological process, neurologic process, as well as others were entertained. Medical Records Attestation: I reviewed the patient's medical records. Home Medications Current Medication List: was personally reviewed by me Laboratory Data Attestation: I reviewed the patient's lab results. Result diagrams: 09/17/19 12:16 09/17/19 12:16 Lab Results 09/17/19 09/17/19 09/17/19 Range/Units 12:16 12:16 12:16 WBC 14.76 H (4.8-10.8) K/uL RBC 4.95 (4.7-6.1) M/uL Hgb 15.8 (14.0-18.0) g/dL Hct 44.8 (42-52) % MCV 90.5 (80-100) fL MCH 31.9 (25-34) pg MCHC 35.3 (32-36) g/dL RDW Std Deviation 42.1 (36.4-46.3) fL RDW Coeff of Sravani 12.8 (11.5-14.5) % Plt Count 367 (130-400) K/uL MPV 9.5 (7.4-10.4) fL Immature Gran % (Auto) 0.3 % Neut % (Auto) 64.2 % Lymph % (Auto) 25.3 % [place] % (Auto) 8.9 % Eos % (Auto) 0.9 % Baso % (Auto) 0.4 % Immature Gran # (Auto) 0.04 H (0.00-0.02) K/uL Neut # (Auto) 9.48 H (1.4-6.5) K/uL Lymph # (Auto) 3.73 H (1.2-3.4) K/uL [place] # (Auto) 1.32 H (0.11-0.59) K/uL Eos # (Auto) 0.13 (0-0.5) K/uL Baso # (Auto) 0.06 (0-0.2) K/uL PT 10.1 (9.0-12.0) Seconds INR 1.0 (0.9-1.1) APTT 26.8 (21.0-31.0) Seconds PTT Ratio 1.0 Sodium 130 L (136-145) mmol/L Potassium 3.3 L (3.5-5.1) mmol/L Chloride 95 L (98-107) mmol/L Carbon Dioxide 27 (21-32) mmol/L Anion Gap 7.0 (3-11) BUN 4 L (7-18) mg/dl Creatinine 1.20 (0.6-1.4) mg/dl Est Cr Clr Drug Dosing 103.8 ml/min Est GFR ( Amer) 89.6 Est GFR (Non-Af Amer) 77.3 BUN/Creatinine Ratio 3.3 L (10-20) Glucose 427 H* (70-99) mg/dl Lactate (0.4-2.0) mmol/L Calcium 9.9 (8.5-10.1) mg/dl Total Bilirubin 0.6 (0.2-1) mg/dl AST 21 (15-37) U/L ALT 57 (12-78) U/L Alkaline Phosphatase 130 H (45-117) U/L Total Protein 8.9 H (6.4-8.2) gm/dl Albumin 4.1 (3.4-5.0) gm/dl Globulin 4.8 H (2.5-4.0) gm/dl Albumin/Globulin Ratio 0.9 (0.9-2) Beta-Hydroxybutyric Acd 1.00 (0.2-2.81) mg/dl Lyme Disease IgG Ab (Negative) Lyme Disease IgM Ab (Negative) 09/17/19 09/17/19 Range/Units 12:16 12:16 WBC (4.8-10.8) K/uL RBC (4.7-6.1) M/uL Hgb (14.0-18.0) g/dL Hct (42-52) % MCV (80-100) fL MCH (25-34) pg MCHC (32-36) g/dL RDW Std Deviation (36.4-46.3) fL RDW Coeff of Sravani (11.5-14.5) % Plt Count (130-400) K/uL MPV (7.4-10.4) fL Immature Gran % (Auto) % Neut % (Auto) % Lymph % (Auto) % [place] % (Auto) % Eos % (Auto) % Baso % (Auto) % Immature Gran # (Auto) (0.00-0.02) K/uL Neut # (Auto) (1.4-6.5) K/uL Lymph # (Auto) (1.2-3.4) K/uL [place] # (Auto) (0.11-0.59) K/uL Eos # (Auto) (0-0.5) K/uL Baso # (Auto) (0-0.2) K/uL PT (9.0-12.0) Seconds INR (0.9-1.1) APTT (21.0-31.0) Seconds PTT Ratio Sodium (136-145) mmol/L Potassium (3.5-5.1) mmol/L Chloride (98-107) mmol/L Carbon Dioxide (21-32) mmol/L Anion Gap (3-11) BUN (7-18) mg/dl Creatinine (0.6-1.4) mg/dl Est Cr Clr Drug Dosing ml/min Est GFR ( Amer) Est GFR (Non-Af Amer) BUN/Creatinine Ratio (10-20) Glucose (70-99) mg/dl Lactate 2.3 H* (0.4-2.0) mmol/L Calcium (8.5-10.1) mg/dl Total Bilirubin (0.2-1) mg/dl AST (15-37) U/L ALT (12-78) U/L Alkaline Phosphatase (45-117) U/L Total Protein (6.4-8.2) gm/dl Albumin (3.4-5.0) gm/dl Globulin (2.5-4.0) gm/dl Albumin/Globulin Ratio (0.9-2) Beta-Hydroxybutyric Acd (0.2-2.81) mg/dl Lyme Disease IgG Ab Negative (Negative) Lyme Disease IgM Ab Negative (Negative) Blood Pressure Blood Pressure Findings: Elevated blood pressure Blood Pressure Disposition: further management by hospitalist EMANUEL Narrative Patient is a 34-year-old male who presents the ER for pain in his right scapula associate with fevers. Upon evaluation he is diaphoretic and ill-appearing. On exam he has a clear abscess with surrounding cellulitis on his right upper back as there are small superficial pustules present. He notes he pulled off a tick from his back and he could not of been on for longer than 1 hour per the patient. IV was established blood work was obtained and showed a leukocytosis of 14,000. No significant anemia. INR was unremarkable. BMP with hyponatremia at 130 and hypokalemia 3.3. CO2 was normal at 27 with a sugar of 427. Lactate was elevated at 2.3. LFTs bilirubin was unremarkable. Beta hydroxybutyric acid was negative. Patient was given 2 L IV fluids, broad-spectrum antibiotics including vancomycin and Rocephin as well as IV insulin, IV potassium, oral potassium 40 mEq. Do favor that this is secondary to a cellulitis and abscess. Bedside ultrasound performed by myself shows cobblestoning with no clear abscess to drain. I did apply a large amount of pressure to the wound and several small pustules opened up and drained. Did not favor that this consistent with Lyme disease. IgG and IgM were negative. No signs of encephalitis or meningitis. Impression & Plan Sepsis, Cellulitis, Abscess Discharge Plan Visit Data *Final* Discharge Date/Time: 09/17/19 15:39 Chief Complaint: Bite Stated Complaint: TICK BITE, PAIN, FEVER, TIM ED Provider: Walt Phelps Discharge Problem: Sepsis, Cellulitis, Abscess Patient Disposition: Admitted As Inpatient Discharge Instructions Interventions: ED Discharge Assessment Last Done: 09/17/19 15:39 Discharge Problem: Sepsis Qualifiers: Sepsis type: sepsis due to unspecified organism Sepsis acute organ dysfunction status: unspecified Qualified Code(s): A41.9 - Sepsis, unspecified organism Cellulitis Qualifiers: Site of cellulitis: trunk Site of cellulitis of trunk: back Qualified Code(s): L03.312 - Cellulitis of back [any part except buttock] The scribe's documentation has been prepared under my direction and personally reviewed by me in its entirety. I confirm that the note above accurately reflects all work, treatment, procedures, and medical decision making performed by me.
[2019-09-17] MEDS: SODIUM CHLORIDE 0.9% 1000ML 1,000 ML IV SCH (17:12)
[2019-09-17] MEDS: DOXYCYCLINE HYCLATE 100 MG in DEXTROSE 5% 100 ML IV SCH (17:40)
[2019-09-17] MEDS: INSULIN ASPART 100 UNITS/ML 3 ML PEN SC SCH ×2 (18:07→22:07)
[2019-09-17] MEDS: LEVOTHYROXINE SODIUM 75 MCG TABLET PO SCH (22:05)
[2019-09-17] MEDS: VANCOMYCIN HCL 1,500 MG in SODIUM CHLORIDE 0.9% 500 ML IV SCH (22:05)
[2019-09-17] MEDS: ATORVASTATIN 20 MG TAB PO SCH (22:05)
[2019-09-17] MEDS: HEPARIN SOD 5,000 UNIT/0.5 ML VIAL SQ SCH (22:06)
[2019-09-18] MEDS: SODIUM CHLORIDE 0.9% 1000ML 1,000 ML IV SCH ×3 (04:09→23:49)
[2019-09-18 04:17] LABS: Hematocrit (blood only) 40.2 % (42-52); Mean Corpuscular Hemoglobin 31.7 pg (25-34); Mean Corpuscular Hgb Conc 34.8 g/dL (32-36); Mean Corpuscular Volume 91.2 fL (80-100); Mean Platelet Volume 9.3 fL (7.4-10.4); Platelet Count 340 K/uL (130-400); RDW Coefficient of Variation 12.7 % (11.5-14.5); RDW Standard Deviation 42.5 fL (36.4-46.3); Red Blood Count 4.41 M/uL (4.7-6.1); White Blood Count 13.09 K/uL (4.8-10.8)
[2019-09-18 04:34] LABS: Albumin Level 3.2 gm/dl (3.4-5.0); Bilirubin Direct 0.2 mg/dl (0-0.2); Calcium 8.9 mg/dl (8.5-10.1); Creatinine Clr Calc Pharmacy 129.7 ml/min; Est GFR (African American) 117.4; Est GFR (Non-African American) 101.3; Magnesium 1.9 mg/dl (1.8-2.4); Potassium 3.7 mmol/L (3.5-5.1)
[2019-09-18 04:37] LABS: Albumin Globulin Ratio 0.7 (0.9-2); Bilirubin,Total 0.6 mg/dl (0.2-1); Globulin 4.3 gm/dl (2.5-4.0); Total Protein 7.5 gm/dl (6.4-8.2)
[2019-09-18] MEDS: HEPARIN SOD 5,000 UNIT/0.5 ML VIAL SQ SCH ×3 (05:32→20:50)
[2019-09-18] MEDS: DOXYCYCLINE HYCLATE 100 MG in DEXTROSE 5% 100 ML IV SCH ×2 (05:32→17:46)
[2019-09-18 08:23] LABS: Estimated Average Glucose 298 mg/dl
[2019-09-18] MEDS: LISINOPRIL 20 MG TAB PO SCH (08:48)
[2019-09-18] MEDS: INSULIN ASPART 100 UNITS/ML 3 ML PEN SC SCH ×4 (08:50→20:48)
[2019-09-18] MEDS: VANCOMYCIN HCL 1,500 MG in SODIUM CHLORIDE 0.9% 500 ML IV SCH (08:55)
[2019-09-18] MEDS ORDERED: cefTRIAXone SODIUM 2,000 MG in DEXTROSE 5% 50 ML IV SCH (13:00)
[2019-09-18] MEDS ORDERED: INSULIN GLARGINE SOLOSTAR 100 UNITS/ML 3 ML PEN SC ONE (14:00)
[2019-09-18] MEDS ORDERED: VANCOMYCIN TROUGH ONE (18:30)
--- NOTE | 2019-09-18 20:43 | Family Medicine Progress Note ---
Date of Service September 18, 2019 Assessment & Plan (1) Tick bite of back: Asad Crowe is a 34 year old man with a history of tick bite and red painful rash with draining abscess to his upper right back area. He is dealing with uncontrolled diabetes and a current smoker. Cellulitis Initially placed on doxy, vancomycin, and rocephin Will d/c vanc and rocephin and continue doxy Very low likelihood of lyme since tick was removed immediately and not engorged. Likely staph aureous possibly strep should get good coverage with doxy Will continue to monitor DM II A1C of 12, just on metformin currently Patient with very limited understanding of disease process or course Has been drinking many many ounces of mountain dew code red on daily basis Will immediately cease this behavior and educated patient on blood sugar measurement and consequences He is understanding and appears motivated to make a behavior change Will increase insulin regmin prior to discharge Smoker Touched on subject of smoking and patient is contemplative for this behavior change No immediate plan to change but we discussed pros cons will continue to educate and discuss DVT PPx: Sub Q heparin F/E/N: DMII diet Dispo: Med/Surg, will monitor for continued improvement overnight on just doxycycline possible d/c home tomorrow (2) Leucocytosis: (3) Cellulitis: (4) Sepsis: (5) Abscess: (6) Tobacco abuse: (7) Type 2 diabetes mellitus: Supervising Physician Co-Signing Physician Notes I personally examined the patient and verified all anderson points of history and exam, discussed case, and agree with decision making with Dr Wick. Feeling better. back still draining but improving. In regards to his diet history it sounds like he drinks at least 60 ounces of regular Mountain Dew (to clarify Mountain Dew code red) every day. He also tends to eat something along the lines of burger and fries otherwise. He is willing to make lifestyle change. Vitals noted, in general he is awake and alert pleasant no distress. HEENT normal cephalic atraumatic mucous membranes moist. Skin in the upper middle of his back there is a fairly large area of exudative induration but it is draining openly from multiple sites, there is surrounding erythema with lessening induration as it moves away from the center. It seems a little bit dullish red, moderately tender but he notes far better than it was before. Cellulitis of the backappears to have been from break in skin on tick bite but not actually tick borne illness - probably just staph cellulitis from break in skin brought on by immune suppression from markedly uncontrolled DM uncontrolled DM2 - heavily mountain dew influenced, probably can be put into remission with massive lifestyle change. educated on such, he's quite motivated. father also motivated to help him Subjective Attending: Walt Johnsonmoo is doing well today, swelling and pain in his back doing much better since starting the antibiotics. Clarified his story: Out monday and had a tick bite that he removed almost immediately after the bite occurred. He noticed the swelling and tenderness about 24 hours after unengorged tick bite and removal and fevers, chills and rigors followed. Patient tells us he takes his metformin but doesn't truly understand his diabetes or why it's important to check or control sugar. Educated patient as best we could on importance of lifestyle change. In particular he is drinking very large amounts of mountain dew red alert multiple times per day and will try to completely cut that out of his diet moving forward. Patient denies any other symptoms on full review of systems Review of Systems Review of Systems: All systems reviewed & are unremarkable except as noted in HPI & below Physical Exam Physical Exam: Constitutional: Well appearing 34 year old man in no apparent distress Eyes: Pupils equal round and reactive, anicteric sclerae Neck: No lymph nodes palpable Respiratory: chest expansion symmetric, lung sounds vesicular in all lung broussard Cardiovascular: HEart sounds dual, regular rate, regular rhythm, no edema Integumentary large approximately 5cm x 5 cm patch of erythematous skin with central purulent drainage. Very mildly tender to palpation, drains with pressure warm to touch when compared to surrouding skin Results & Data Vital Signs (Past 12 Hours) Vital Signs Temp Pulse Resp BP Pulse Ox 09/18/19 07:03 36.8 C 73 18 144/89 H 95 09/18/19 00:55 37.5 C PG Care Time/CCT Total # of Minutes Spent Total Time Spent with Patient: Total time spent is greater than 50% in coordination of care (as documented) at patient's floor/unit and/or counseling p atient: Resident Activity Tracking Resident Involvement: Resident Care Provided Care Provided: Adult Hospital Medicine (1) Cellulitis Site of cellulitis: trunk Site of cellulitis of trunk: back Qualified Code(s): L03.312 - Cellulitis of back [any part except buttock] (2) Sepsis Sepsis acute organ dysfunction status: unspecified Sepsis type: sepsis due to unspecified organism Qualified Code(s): A41.9 - Sepsis, unspecified organism
[2019-09-18] MEDS: LEVOTHYROXINE SODIUM 75 MCG TABLET PO SCH (20:49)
[2019-09-18] MEDS: ATORVASTATIN 20 MG TAB PO SCH (20:49)
[2019-09-18] MEDS ORDERED: INSULIN GLARGINE SOLOSTAR 100 UNITS/ML 3 ML PEN SC SCH (21:00)
[2019-09-19 05:48] LABS: Hematocrit (blood only) 39.2 % (42-52); Hemoglobin 13.4 g/dL (14.0-18.0); Mean Corpuscular Hemoglobin 30.9 pg (25-34); Mean Corpuscular Hgb Conc 34.2 g/dL (32-36); Mean Corpuscular Volume 90.5 fL (80-100); Platelet Count 343 K/uL (130-400); RDW Coefficient of Variation 12.8 % (11.5-14.5); RDW Standard Deviation 42.4 fL (36.4-46.3); Red Blood Count 4.33 M/uL (4.7-6.1); White Blood Count 8.19 K/uL (4.8-10.8)
[2019-09-19] MEDS: HEPARIN SOD 5,000 UNIT/0.5 ML VIAL SQ SCH ×2 (05:53→13:26)
[2019-09-19] MEDS: DOXYCYCLINE HYCLATE 100 MG in DEXTROSE 5% 100 ML IV SCH (05:57)
[2019-09-19] MEDS: INSULIN ASPART 100 UNITS/ML 3 ML PEN SC SCH ×2 (08:52→13:04)
[2019-09-19] MEDS: LISINOPRIL 20 MG TAB PO SCH (08:53)
--- NOTE | 2019-09-19 13:19 | Discharge Summary ---
Date of Service September 19, 2019 Admission HPI Per Admitting Provider The patient is 34-year-old male who went for hunting last Monday. When he came back home his father noticed a tick on his back and removed it. After that he noticed worsening redness, swelling and pain of the right upper back. His symptoms continued to get worse. The patient has not been taking his home medication for 2 days as he was not feeling well. He presented to the ER today., he was found to be having cellulitis and possible abscess of the back. Wound cultures were sent. He was started on IV antibiotics and will be admitted for further evaluation and management. His blood sugar and blood pressure has been running high, probably because he has not taken his home medications, and medication noncompliance. Admission Exam Per Admitting Provider GENERAL : No acute distress EYES: No icterus, gaze conjugate NOSE: No evidence of epistaxis MOUTH: No lesions or candidiasis, mucosa moist NECK: Supple LUNGS: CTA B/L, no wheezes, rales or rhonchi HEART: Regular, rate controlled ABDOMEN: Soft, NT, ND, BS Present EXTREMITIES: No LE edema, pedal pulses intact NEURO: A&OX3 Back examination reveals cellulitis and possible underlying abscess on the upper back right side Principal Diagnosis Cellulitis Discharge Exam Constitutional: Well appearing 34 year old man in no apparent distress Eyes: Pupils equal round and reactive, anicteric sclerae Neck: No lymph nodes palpable Respiratory: chest expansion symmetric, lung sounds vesicular in all lung broussard Cardiovascular: HEart sounds dual, regular rate, regular rhythm, no edema Integumentary large approximately 5cm x 5 cm patch of erythematous skin with central purulent drainage warm to touch when compared to surrouding skin. Almost no tenderness to palpation at this point Discharge Data Allergies Allergy/AdvReac Type Severity Reaction Status Date / Time No Known Allergies Allergy Unverified 09/17/19 13:11 Consultations 09/17/19 13:11 ED Decision to Admit Stat Hospital Course (1) Tick bite of back: Asad Crowe is a 34 year old man with a history of tick bite and red painful rash with draining abscess to his upper right back area. He is dealing with uncontrolled diabetes and a current smoker. Cellulitis Initially placed on doxy, vancomycin, and rocephin After one day discontinued rocephin and vancomycin and put patient on oral doxycycline Very low likelihood of lyme since tick was removed immediately and not engorged. Patient improved rapidly and was improved for discharge after 24 hours of antibiotics DM II A1C of 12, just on metformin 500 mg BID currently Patient with very limited understanding of disease process or course Has been drinking many many ounces of mountain dew code red on daily basis Will immediately cease this behavior and educated patient on blood sugar measurement and consequences of having He is understanding and appears motivated to make a behavior change Discussed patient with his primary care provider Dr. Celis Will double patient's metformin dose from now to 1000 mg BID and MOST importantly cut out the nearly one pound of dietary sugar he's drinking each day and closely monitor May benefit from further oral medications moving forward and will need close follow up Smoker Touched on subject of smoking and patient is contemplative for this behavior change No immediate plan to change but we discussed pros cons attempted to educate on the topic he is interested in making this change but will focus on cutting out the sugar first It was a pleasure to meet and take care of Mr. Crowe (2) Leucocytosis: (3) Cellulitis: (4) Sepsis: (5) Abscess: (6) Tobacco abuse: (7) Type 2 diabetes mellitus: Total Time Total Time Spent Total Time Spent (In Minutes): <30 Discharge Plan Discharge Items Patient Disposition: Home - Self-Care Reason For Visit: CELLULITIS,ABSCESS Discharge Diagnosis: Cellulitis Activity: Resume your previous activity Non-emergency contact: Primary Care Provider Call non-emergency contact if: you have any medication questions, your symptoms worsen and your pain is not controlled Follow-up/Referrals: Ramsey Celis, DO [Primary Care Provider] - 09/26/19 2:00 pm (Please, follow up with Dr. Ramsey Celis on September 26 at 2:00 pm. *If you need to change this appointment, call the office at [phone].) Diet: Carb Consistent or DM2 Addtl Attending Provider Instructions: Mr. Crowe, it was a pleasure to meet and treat you for your cellulitis and abscess formation on your back. We initially treated you with IV antibiotics and transitioned you to oral antibiotics. We believe this infection is due to the normal bacteria on the surface of your skin that were able to get down inside the skin through the bite. We DO NOT believe this has anything to do with lyme disease and as you removed the tick the same day your risk would be exceedingly low. I will send you home with one antibiotic, doxycycline that you will continue to take for seven days. Around the end of next week we would like you to follow up with your primary care provider Dr. Celis who can decide if you need a further course of antibiotics. The more concerning issue is your diabetes. We have spent a long time discussing how to get get control over this issue and the first and largest intervention that will likely make a mountain of difference is to stop drinking all of the Mountain Dew code red, effective immediately. If we can cut out these hundreds of grams of sugar your need for further medicine will likely be minimized. In the mean time we will increase your dose of metformin. Dr. Celis may add further agents when he sees you at follow up if necessary. You are more than capable of making this change and being notably healthier at 38 than you were at 28. It will be a shift in lifestyle but it seems you have the awareness and drive to do it. I wish you all the best moving forward, Sincerely, Mohit Wick MD Pending Studies at Discharge: No Stand-Alone Forms: [facility], Smoking Cessation Medications and DC Order Prescriptions: New lancets [OneTouch Delica Lancets] 30 gauge misc .ROUTE .MEDSUPPLY Qty: 25 RF: 0 OneTouch Verio strip .ROUTE .MEDSUPPLY Qty: 10 RF: 0 Continued lisinopril 20 mg tablet 20 mg PO DAILY Qty: 90 RF: 1 atorvastatin 20 mg tablet 20 mg PO HS RF: 0 ranitidine HCl [Zantac] 150 mg tablet 150 mg PO BID PRN (Reason: Heartburn) RF: 0 levothyroxine 75 mcg capsule 75 mcg PO QPM RF: 0 Changed metformin 500 mg tablet 1,000 mg PO BIDM 30 Days Qty: 30 RF: 0 Discharge Orders: Discharge Order (Routine); Ordered 09/19/19 Ordered By: Mohit Gutiérrez/Other Patient Handouts: A1C, Diabetes Chcf Complications, Diabetes Resources, Diabetes Type 2 Coping, Diabetes Healthy Meals, Diabetes Carbs, Diabetes Exercise Benefits, Diabetes Exercise Get Started, Diabetes Activity Tips, Diabetes Living Life Admission Data Admit Date/Time: 09/17/19 13:25 Attending Provider: Walt Chow Admit Provider: Gerard Murdock Primary Care Provider: Ramsey Celis Other Providers: Gerard Murdock Other Interventions: Discharge Summary Assessment (RN) Last Done: 09/19/19 14:12 DC Date/Time DO NOT enter until pt leaves facility: 09/19/19 14:37 Supervising Physician Co-Signing Physician Notes I personally examined the patient and verified all anderson points of history and exam, discussed case, and agree with decision making with Dr Wick. Feeling better. improving a good deal. Vitals noted, in general he is awake and alert pleasant no distress. HEENT normal cephalic atraumatic mucous membranes moist. Skin in the upper middle of his back there is a fairly large area of exudative induration but it is draining openly from multiple sites, there is surrounding erythema with lessening induration as it moves away from the center - significantly less than yesterday Cellulitis of the backappears to have been from break in skin on tick bite but not actually tick borne illness - probably just staph cellulitis from break in skin brought on by immune suppression from markedly uncontrolled DM - improving on doxy, stable for home, PCP next week; treat for presumptive 7 days total, can extend if needed. uncontrolled DM2 - heavily mountain dew influenced, probably can be put into remission with massive lifestyle change. educated on such, he's quite motivated. father also motivated to help him; for now just increase metformin some since stopping Mt Dew could affect massive improvements in sugar quickly. if not, consider initiating a GLP. also rec'd checking sugars 2hrs after eating to learn from metabolism and stray away from foods that routinely bump sugar >150 Resident Activity Tracking Resident Involvement: Resident Care Provided Care Provided: Adult Hospital Medicine
== END 2019-09-19 14:37 | disposition home or self-care (01) ==
LOC: 3W 10:38 → ED 10:38 → SUATTDRO 13:25 → 3W 15:39

== ENCOUNTER 2024-07-31 11:44 | Inpatient (IN) ==
--- NOTE | 2024-07-31 12:09 | Emergency Department Note ---
Impression & Plan Sepsis, Acute pyelonephritis, Kidney abscess, Leukocytosis, Acute hypokalemia ED Provider Note NAME: BRADLEY DUBOIS II AGE: 39 SEX: M : 1985 ARRIVES VIA: Walk-In INFORMANT: Patient ED PROVIDER(S): Walt Phelps DO CHIEF COMPLAINT: abdominal pain HPI: Patient is a 39-year-old male with a past medical history of epidermal cyst, mass of the urinary bladder with resection performed by Dr. Weston 1 month ago who presents to the ER for the past week and a half for trouble urinating. He does have some dysuria. He admits to left back pain as well as feeling hot and cold. Denies any headache or change in vision. No chest pain or shortness of breath. He does have pain throughout his entire belly. Last fever was 4 days ago was 100.4. ADDITIONAL HISTORY OBTAINED: Per HPI Chronic Medical/Social Conditions Affecting Care: Per HPI PAST MEDICAL HISTORY:See Below PAST SURGICAL HISTORY:See Below FAMILY HISTORY:See Below SOCIAL HISTORY:See Below HOME MEDICATIONS:See Below ALLERGIES:See Below VITALS:See Below PHYSICAL EXAMINATION: GENERAL: Sitting up in bed, alert, well appearing, well nourished, no distress, non-toxic EYE EXAM: normal conjunctiva. PERRL and EOM's grossly intact. OROPHARYNX: no exudate, no erythema, lips, buccal mucosa, and tongue normal and mucous membranes are moist NECK: supple, no nuchal rigidity, no adenopathy, non-tender LUNGS: Clear to auscultation. Normal chest wall mechanics HEART: no murmurs, S1 normal and S2 normal ABDOMEN: abdomen soft, non-tender, normo-active bowel sounds, no masses, no rebound or guarding. BACK: Back is symmetrical on inspection and there is no deformity, no midline tenderness, no CVA tenderness. SKIN: no rashes and no bruising UPPER EXTREMITIES: upper extremities are grossly normal. LOWER EXTREMITIES: No pitting edema. NEURO EXAM: Normal sensorium, cranial nerves II-XII grossly intact, normal speech, no gross weakness of arms, no gross weakness of legs. MEDICAL DECISION MAKING: Patient is a 39-year-old male who presents ER for the above-stated complaint. IV was established medicos obtained. Labs show leukocytosis of 18.5 thousand. No significant anemia. BMP with a hyponatremia at 129 and a hypokalemia 3.2. Glucose was elevated at 340. Lactate was elevated 2.4. LFTs bilirubin was unremarkable. UA with leuks and whites and CT abdomen pelvis confirms pyelonephritis with renal abscess. I discussed with urology and they were agreeable and recommended IV antibiotics. No drainage of the abscess. Discussed with the case with the hospitalist Jeferson for further evaluation management treatment. Patient was given 2 g of Rocephin while in the ER. Blood cultures and lactate were obtained unfortunately this was done after the renal abscess was found and antibiotics had been given initially. Consults/Care Managements Discussions: Per MDM Triage Nursing notes reviewed. Limited review of prior medical records performed Vital Signs: reviewed and remarkable for no significant abnormalities Differential diagnosis: Differential diagnosis includes etiologies such as sepsis, UTI, pneumonia, metabolic, electrolyte abnormalities, cardiac sources, intracerebral event, toxicologic, neurological, as well as others were entertained. ER treatment provided: See below Diagnostics interpreted by me include EKG and cardiac monitoring as listed below: -Cardiac Monitoring: An order was placed for continuous cardiac monitoring. The monitor shows a rate of 90 with sinus rhythm. -ECG: none -Laboratory studies:Interpreted by me as stated above in MDM and shown below. Imaging studies: Xrays: As interpreted by me:none CTs show: CT abdomen pelvis per my pulmonary interpretation showed no obvious pneumonia in the lower lobe broussard CT of the pelvis per radiologist described above Procedures:none Critical Care: None Past Med/Surg History Problem List (Updated 07/31/24 @ 16:01 by Walt Phelps DO) Acute hypokalemia (Acute) Leukocytosis (Acute) Kidney abscess (Acute) Acute pyelonephritis (Acute) Sepsis (Acute) Complicated UTI (urinary tract infection) Mass of urinary bladder Epidermal cyst (05/09/23) FINAL DIAGNOSIS In office procedure Dr. Cruz Skin, left axilla, excision: - Multiple epidermal cysts. Sebaceous cyst of axilla Foraminal stenosis of cervical region Radiculopathy, cervical Spondylosis, cervical Pineal gland cyst BPPV (benign paroxysmal positional vertigo) Seasonal allergies Conductive hearing loss of right ear with unrestricted hearing of left ear Type 2 diabetes mellitus GERD (gastroesophageal reflux disease) Chronic back pain Hypothyroidism Hyperlipidemia Hypertension Medical History BPPV (benign paroxysmal positional vertigo) Cervical spondylosis Chronic back pain GERD (gastroesophageal reflux disease) HTN (hypertension) Hyperlipidemia Hypothyroidism Neuropathy Noncompliance with medication regimen Pulmonary nodule incidental finding; monitoring Reducible right inguinal hernia Seasonal allergies Type 2 diabetes mellitus Urachal remnant Surgical History History of adenoidectomy History of oral surgery History of tonsillectomy Hx of colonoscopy Family History Grandmother (Maternal) Cancer Grandfather Myocardial infarction Lung cancer Drug abuse Cancer Mother Stroke COPD (chronic obstructive pulmonary disease) Uncle Cancer Other Hypertension Kidney disease Denies family history of Colon cancer Ovarian cancer Prostate cancer Bipolar disorder Social History Smoking Status: Current every day smoker Tobacco Type: Cigarettes Age Started Using Tobacco: 12; packs per day: 1.5; Cigarettes Per Day: 1 pack per day - advised; Second Hand Exposure: No; Do You Dip or Chew Tobacco: No; Hx Alcohol Use: Yes Alcohol type: beer and hard liquor Alcohol Intake Frequency: Monthly or Less Alcohol Intake Frequency Comment: ONCE PER MONTH Hx Substance Use: Yes (advised) Non-Prescribed Medications: Marijuana Last Used Substance Other:: 06/17/24 Preferred Language: Bulgarian Communication Ability: Effective Visual Impairment: No Limitations Hearing Ability: Normal Operating Room Rn Required: No Beliefs That Will Affect Care: None marital status: Single Current Living Situation: Parent Current Living Situation Comment: w/ father current occupational status: employed and unemployed current occupation: self How many Children do You have: 0 Feels Safe at Home: Yes Childhood Exposure to Second-Hand Smoke: Yes Diet: diabetic and regular Diet Comment: regular during the past year weight has: decreased > 10 lbs Dental Care, Regularly: Yes Physical Activity Frequency: Does not Exercise Seatbelt Use: always Sunscreen Use: No Assistive Devices: Contacts, Denture - Upper and Denture - Lower Allergies Allergies Allergy/AdvReac Type Severity Reaction Status Date / Time gabapentin Allergy Intermediate Tremors, Verified 06/27/24 06:17 "Makes me feel weird" Home Meds Home Medications Medication Instructions Recorded Confirmed metoclopramide HCl 5 mg tablet 5 mg PO DIRECTED PRN Nausea 06/27/24 07/31/24 Previous Rx's Medication Instructions Recorded blood sugar diagnostic (OneTouch #100 ea 12/13/21 Verio test strips) lancets 30 gauge (Wilmar Hidalgo #100 ea 12/13/21 Lancets) levothyroxine 75 mcg tablet 75 mcg PO QPM #90 tabs 04/24/23 lisinopril 20 mg tablet 20 mg PO DAILY #90 tabs 04/24/23 atorvastatin 80 mg tablet 80 mg PO HS #90 tabs 06/09/23 famotidine 40 mg tablet 40 mg PO BID #60 tabs 03/15/24 metformin 1,000 mg tablet 1,000 mg PO BID Diabetes #180 tabs 05/01/24 empagliflozin 25 mg tablet 25 mg PO DAILY #30 tabs 05/13/24 (Jardiance) semaglutide 1 mg/dose (4 mg/3 mL) 1 mg (0.75 mL) subcut .weekly #3 mL 06/04/24 subcutaneous pen injector Results & Data (ED) Vital Signs Vital Signs - 24 hr 07/31/24 11:48 07/31/24 12:09 07/31/24 12:09 Temperature 36.8 C Temperature Source Oral Pulse Rate 104 H 89 Pulse Rate [Apical] 89 Pulse Rhythm Regular Pulse Rhythm [Apical] Regular Pulse Strength [Apical] Normal Respiratory Rate 19 18 18 Respiratory Effort / Characteristics Non-Labored Spontaneous Respiratory Depth Normal Respiratory Pattern Regular Blood Pressure 122/80 Blood Pressure [Right Arm] 108/79 Blood Pressure Mean 94 Blood Pressure Mean [Right Arm] 88 Blood Pressure Position [Right Arm] Sitting Pulse Oximetry 93 92 92 Oxygen Delivery Method Room Air Room Air Room Air Sepsis Recent Fever Within 48 Hours Yes Sepsis New/Unexplained Change in Mental Status N/A Sepsis Action Taken by Nursing No Action Required 07/31/24 12:23 Temperature Temperature Source Pulse Rate 94 H Pulse Rate [Apical] Pulse Rhythm Pulse Rhythm [Apical] Pulse Strength [Apical] Respiratory Rate Respiratory Effort / Characteristics Respiratory Depth Respiratory Pattern Blood Pressure Blood Pressure [Right Arm] Blood Pressure Mean Blood Pressure Mean [Right Arm] Blood Pressure Position [Right Arm] Pulse Oximetry Oxygen Delivery Method Sepsis Recent Fever Within 48 Hours Sepsis New/Unexplained Change in Mental Status Sepsis Action Taken by Nursing Laboratory Data 07/31/24 12:00 07/31/24 12:00 Lab Results 07/31/24 07/31/24 Range/Units 12:00 14:10 WBC 18.46 H (4.8-10.8) K/ul RBC 4.56 L (4.70-6.10) M/uL Hgb 13.7 L (14.0-18.0) g/dl Hct 38.7 L (42.0-52.0) % MCV 84.9 (80.0-100.0) fL MCH 30.0 (25.0-34.0) pg MCHC 35.4 (32.0-36.0) g/dL RDW Std Deviation 38.3 (36.4-46.3) fL RDW Coeff of Sravani 12.4 (11.5-14.5) % Plt Count 696 H (130-400) K/uL MPV 8.5 L (9.4-12.4) fL Immature Gran % (Auto) 0.5 % Neut % (Auto) 77.7 % Lymph % (Auto) 11.2 % [place] % (Auto) 9.9 % Eos % (Auto) 0.3 % Baso % (Auto) 0.4 % Neut # (Auto) 14.36 H (1.40-6.50) K/uL Lymph # (Auto) 2.06 (1.20-3.40) K/uL [place] # (Auto) 1.82 H (0.11-0.59) K/uL Eos # (Auto) 0.05 (0.00-0.50) K/uL Baso # (Auto) 0.07 (0.00-0.20) K/uL Immature Gran # (Auto) 0.10 (0.01-0.20) K/uL Sodium 129 L (136-145) mmol/L Potassium 3.2 L (3.5-5.1) mmol/L Chloride 88 L (98-107) mmol/L Carbon Dioxide 31 (21-32) mmol/L Anion Gap 10 (3-11) BUN 5 L (6-23) mg/dl Creatinine 0.76 (0.6-1.4) mg/dl Est Cr Clr Drug Dosing 132.1 ml/min Est GFR ( Amer) 131.3 ml/min Est GFR (Non-Af Amer) 113.3 ml/min BUN/Creatinine Ratio 6.6 L (10-20) Glucose 326 H* (70-99(Fasting)) mg/dl Lactate 2.4 H* (0.4-2.0) mmol/L Calcium 9.2 (8.6-10.3) mg/dl Total Bilirubin 0.6 (0.2-1.0) mg/dl AST 15 (13-39) U/L ALT 17 (7-52) U/L Alkaline Phosphatase 122 H (34-104) U/L Total Protein 8.1 (6.0-8.3) gm/dl Albumin 3.8 (3.4-5.0) gm/dl Globulin 4.3 H (2.5-4.0) gm/dl Albumin/Globulin Ratio 0.9 (0.9-2) Lipase 9 L (11-82) U/L Procalcitonin 0.25 (0-0.5) ng/ml Urine Color Yellow Urine Appearance Clear (Clear) Urine pH 6.5 (4.5-7.5) Ur Specific [place] 1.023 (1.000-1.030) Urine Protein Negative (Negative) Urine Glucose (UA) 3+ H (Negative) Urine Ketones Negative (Negative) Urine Blood Negative (Negative) Urine Nitrite Negative (Negative) Urine Bilirubin Negative (Negative) Urine Urobilinogen Negative (Negative) Ur Leukocyte Esterase 1+ H (Negative) Urine WBC (Auto) 21-50 H (0-5) /hpf Urine RBC (Auto) 0-2 (0-2) /hpf U Hyaline Cast (Auto) 0-2 (0-2) /lpf U Epithel Cells (Auto) 0-2 (0-2) /hpf Urine Bacteria (Auto) None Seen (None Seen) Administered Medications Vancomycin HCl 1,750 mg/ (Sodium Chloride) 535 mls @ 200 mls/hr IV NOW ONE Stop: 07/31/24 17:40 Last Admin: 07/31/24 15:15 Dose: 200 mls/hr Documented By: BRITTANI Discontinued Medications Sodium Chloride (Nss) 1,000 mls @ 999 mls/hr IV .Q1H1M MARY Stop: 07/31/24 14:15 Last Infusion: 07/31/24 14:12 Dose: Infused Documented By: Admin: 07/31/24 13:08 Dose: 999 mls/hr Documented By: Infusion: 07/31/24 13:08 Dose: Infused Documented By: Admin: 07/31/24 12:12 Dose: 999 mls/hr Documented By: BRITTANI Ceftriaxone Sodium (Rocephin) 2,000 mg in 50 mls @ 100 mls/hr IV Q24H [facility] Stop: 08/02/24 13:14 Last Infusion: 07/31/24 14:12 Dose: Infused Documented By: Admin: 07/31/24 13:29 Dose: 100 mls/hr Documented By: BRITTANI Sodium Chloride (Nss) 1,000 mls @ 999 mls/hr IV .Q1H1M MARY Stop: 07/31/24 15:15 Last Admin: 07/31/24 15:17 Dose: 999 mls/hr Documented By: BRITTANI Cefepime HCl 2,000 mg/ Syringe 20 mls @ 5 mls/min IV NOW STA; Protocol Stop: 07/31/24 14:19 Last Admin: 07/31/24 15:15 Dose: 5 mls/min Documented By: BRITTANI Ioversol (Optiray 320 100ml) 92 ml IV ONCE ONE Stop: 07/31/24 13:17 Last Admin: 07/31/24 13:17 Dose: 92 ml Documented By: JOSE LUIS Ketorolac Tromethamine (Ketorolac Tromethamine 15 Mg/Ml Vial) 15 mg IV NOW ONE Stop: 07/31/24 12:10 Last Admin: 07/31/24 12:11 Dose: 15 mg Documented By: BRITTANI Potassium Chloride (Potassium Chloride 10 Meq Tabcr) 40 meq PO NOW STA Stop: 07/31/24 13:10 Last Admin: 07/31/24 13:28 Dose: 40 meq Documented By: BRITTANI Imaging Data Radiologist's Impression: Abdomen/Pelvis CT 07/31/24 12:09 CT OF THE ABDOMEN AND PELVIS WITH CONTRAST CLINICAL HISTORY: Postoperative abdominal pain. COMPARISON STUDY: CT of the abdomen and pelvis February 28, 2024. TECHNIQUE: Following IV administration of 92 mL of Optiray, axial images of the abdomen and pelvis were obtained from the lung bases to the proximal femurs. Images were reviewed in the axial, sagittal, and coronal planes. IV contrast was administered without complication. Automated exposure control was utilized for the study. A dose lowering technique was utilized adhering to the principles of ALARA. CT DOSE: 1009.81 mGy.cm FINDINGS: Lung bases are unremarkable. No pneumatosis, free air or portal venous gas is present. Liver, spleen, adrenal glands and pancreas are unremarkable. There is no biliary or pancreatic ductal dilatation. The caliber and wall thickness of small and large bowel are normal. There is a moderate amount of stool within the ascending colon and the transverse colon. The appendix is normal. There is no lymphadenopathy. Major vasculature is patent. There is no hydronephrosis. There are no urinary calculi. There is mild bladder wall thickening. The urachal remnant shown on CT of February 28, 2024 has been resected. There is mild bilateral perinephric stranding. There is heterogeneous enhancement of the kidneys with multiple small hypoenhancing foci. A few low- attenuation foci within the kidneys are noted, the largest of which is a 1.4 cm left lower pole focus on image 156 of 361. No drainable fluid collection is present. There is trace bilateral perinephric fluid. Subtle urothelial thickening of the ureters and collecting systems. IMPRESSION: 1. Status post interval resection of the urachal remnant shown on prior CT. 2. Bladder wall thickening which may reflect cystitis. Heterogeneous enhancement of the kidneys suggestive of acute bilateral pyelonephritis. Several hypoenhancing foci, including a 1.4 cm left lower pole hypodense focus. These may reflect developing small renal abscesses. No drainable fluid collection. Mild urothelial thickening of the ureters and collecting systems. 3. No urinary calculi or hydronephrosis. 4. No bowel obstruction. Moderate amount of stool within the colon. ACT 112: Negative or not required by law. Electronically signed by: Toni Gonzalez M.D. 07/31/2024 1:35 PM Discharge Plan Visit Data Chief Complaint: Abdominal Pain Stated Complaint: ABD PAIN, BACK PAIN, CONSTIPATED, BLADDER SURG. ED Provider: Walt Phelps Discharge Problem: Sepsis, Acute pyelonephritis, Kidney abscess, Leukocytosis, Acute hypokalemia Forms Stand Alone Forms: My [facility] [employer] Prescriptions Prescriptions: No Action (DME) lancets [OneTouch Delica Lancets] 30 gauge misc See Dose Instructions .ROUTE .MEDSUPPLY Qty: 100 1RF Dose Instruction: As directed Rx Instructions: TEST TWICE PER DAY (DME) OneTouch Verio test strips Strip See Dose Instructions .ROUTE .MEDSUPPLY Qty: 100 1RF Dose Instruction: As directed Rx Instructions: TEST TWICE PER DAY levothyroxine 75 mcg tablet 75 mcg PO QPM Qty: 90 3RF lisinopril 20 mg tablet 20 mg PO DAILY Qty: 90 3RF metformin 1,000 mg tablet 1,000 mg PO BID Qty: 180 3RF Jardiance 25 mg tablet 25 mg PO DAILY Qty: 30 2RF Rx Instructions: take 1 tablet by mouth once daily semaglutide 1 mg/dose (4 mg/3 mL) pen injector 1 mg subcut .weekly Qty: 3 2RF atorvastatin 80 mg tablet 80 mg PO HS Qty: 90 3RF famotidine 40 mg tablet 40 mg PO BID Qty: 60 2RF metoclopramide HCl 5 mg tablet 5 mg PO DIRECTED PRN (Reason: Nausea) Referrals Referrals: Ramsey Celis DO [Primary Care Provider] - Discharge Problem: Sepsis Qualifiers: Sepsis type: sepsis due to unspecified organism Sepsis acute organ dysfunction status: unspecified Qualified Code(s): A41.9 - Sepsis, unspecified organism Leukocytosis Qualifiers: Leukocytosis type: unspecified Qualified Code(s): D72.829 - Elevated white blood cell count, unspecified
[2024-07-31] MEDS: KETOROLAC TROMETHAMINE 15 MG/ML VIAL IV ONE (12:11)
[2024-07-31] MEDS: SODIUM CHLORIDE 0.9% 1,000 ML IV SCH ×2 (12:12→15:17)
[2024-07-31 12:16] LABS: Basophils # (auto) 0.07 K/uL (0.00-0.20); Basophils % (auto) 0.4 %; Eosinophils # (auto) 0.05 K/uL (0.00-0.50); Eosinophils % (auto) 0.3 %; Hematocrit (blood only) 38.7 % (42.0-52.0); Hemoglobin 13.7 g/dl (14.0-18.0); Immature Granulocytes % (auto) 0.5 %; Lymphocytes # (auto) 2.06 K/uL (1.20-3.40); Lymphocytes % (auto) 11.2 %; Mean Corpuscular Hgb Conc 35.4 g/dL (32.0-36.0); Mean Corpuscular Volume 84.9 fL (80.0-100.0); Mean Platelet Volume 8.5 fL (9.4-12.4); Monocytes # (auto) 1.82 K/uL (0.11-0.59); Monocytes % (auto) 9.9 %; Neutrophils # (auto) 14.36 K/uL (1.40-6.50); Neutrophils % (auto) 77.7 %; Platelet Count 696 K/uL (130-400); RDW Coefficient of Variation 12.4 % (11.5-14.5); RDW Standard Deviation 38.3 fL (36.4-46.3); Red Blood Count 4.56 M/uL (4.70-6.10); White Blood Count 18.46 K/ul (4.8-10.8)
[2024-07-31 12:19] LABS: Appearance Urine Clear (Clear); Bacteria Urine Automated None Seen (None Seen); Bilirubin Urine Negative (Negative); Blood Urine Negative (Negative); Cast Urine Automated 0-2 /lpf (0-2); Color Urine Yellow; Epithelial Cell Urine Auto 0-2 /hpf (0-2); Glucose Urine UA 3+ (Negative); Ketones Urine Negative (Negative); Leukocyte Esterase Urine 1+ (Negative); Nitrite Urine Negative (Negative); Protein Urine Negative (Negative); RBC Urine Automated 0-2 /hpf (0-2); Specific Gravity Urine 1.023 (1.000-1.030); Urobilinogen Urine Negative (Negative); WBC Urine Automated 21-50 /hpf (0-5); pH Urine 6.5 (4.5-7.5)
[2024-07-31 13:00] LABS: Albumin Globulin Ratio 0.9 (0.9-2); Albumin Level 3.8 gm/dl (3.4-5.0); BUN Creatinine Ratio 6.6 (10-20); Bilirubin,Total 0.6 mg/dl (0.2-1.0); Calcium 9.2 mg/dl (8.6-10.3); Creatinine Clr Calc Pharmacy 132.1 ml/min; Est GFR (African American) 131.3 ml/min; Est GFR (Non-African American) 113.3 ml/min; Globulin 4.3 gm/dl (2.5-4.0); Potassium 3.2 mmol/L (3.5-5.1); Total Protein 8.1 gm/dl (6.0-8.3)
[2024-07-31] MEDS: OPTIRAY 320 100ml IV ONE (13:17)
[2024-07-31] MEDS: POTASSIUM CHLORIDE 10 MEQ TABCR PO STA (13:28)
[2024-07-31] MEDS: cefTRIAXone SODIUM 2,000 MG/50 ML BAG IV SCH (13:29)
--- NOTE | 2024-07-31 13:36 | CT Scan Report ---
CT OF THE ABDOMEN AND PELVIS WITH CONTRAST CLINICAL HISTORY: Postoperative abdominal pain. COMPARISON STUDY: CT of the abdomen and pelvis February 28, 2024. TECHNIQUE: Following IV administration of 92 mL of Optiray, axial images of the abdomen and pelvis we re obtained from the lung bases to the proximal femurs. Images were reviewed in the axial, sagittal, and coronal planes. IV contrast was administered without complication. Automated exposure control wa s utilized for the study. A dose lowering technique was utilized adhering to the principles of ALARA . CT DOSE: 1009.81 mGy.cm FINDINGS: Lung bases are unremarkable. No pneumatosis, free air or portal venous gas is present. Live r, spleen, adrenal glands and pancreas are unremarkable. There is no biliary or pancreatic ductal dil atation. The caliber and wall thickness of small and large bowel are normal. There is a moderate amou nt of stool within the ascending colon and the transverse colon. The appendix is normal. There is no lymphadenopathy. Major vasculature is patent. There is no hydronephrosis. There are no urinary calcul i. There is mild bladder wall thickening. The urachal remnant shown on CT of February 28, 2024 has been resected. There is mild bilateral perinephric stranding. There is heterogeneous enhancement of the ki dneys with multiple small hypoenhancing foci. A few low-attenuation foci within the kidneys are noted , the largest of which is a 1.4 cm left lower pole focus on image 156 of 361. No drainable fluid lore ection is present. There is trace bilateral perinephric fluid. Subtle urothelial thickening of the ur eters and collecting systems. IMPRESSION: 1. Status post interval resection of the urachal remnant shown on prior CT. 2. Bladder wall thickening which may reflect cystitis. Heterogeneous enhancement of the kidneys sugge stive of acute bilateral pyelonephritis. Several hypoenhancing foci, including a 1.4 cm left lower po le hypodense focus. These may reflect developing small renal abscesses. No drainable fluid collection . Mild urothelial thickening of the ureters and collecting systems. 3. No urinary calculi or hydronephrosis. 4. No bowel obstruction. Moderate amount of stool within the colon. ACT 112: Negative or not required by law. Electronically signed by: Toni Gonzalez M.D. 07/31/2024 1:35 PM
--- NOTE | 2024-07-31 14:14 | History & Physical Report ---
Date of Service July 31, 2024 Assessment & Plan (1) Complicated UTI (urinary tract infection): Plan: Asad is a 39-year-old male with a history of cervical stenosis, BPPV, type II DM, GERD, chronic back pain, hypothyroidism, hyperlipidemia, hypertension who had a urinary bladder mass resection performed by urology 1 month ago and who presents with dysuria, left flank pain, and abdominal pain with a fever 4 days ago. Sepsis, Complicated UTI - s/p urinary bladder mass resection 06/27/24 Review of prior cultures with coag negative staph from a single wound specimen, otherwise no history of resistant organisms Leukocytosis of 18, hyponatremic at 129, creatinine is normal at 0.76. UA is with 1+ leukocyte esterase and white blood cells, no bacteria or nitrites. Due to bilateral pyelonephritis, increased risk with recent procedural intervention and DM2, and sepsis on admission without risk factors for MDR but with evidence of abscess antibiotics are expanded to cefepime/vancomycin on admission. Cultures pending. CTA/P with contrast: Bladder wall thickening suspicious for cystitis. Kidney enhancement suggestive of bilateral pyelo-, possible small renal abscesses without drainable fluid collection with thickening of ureters and collecting system. 2 L NSS given in the ER. Sepsis guidelines by AB W recommend 2397 cc, IBW 2263 cc. Additional 263 cc ordered to meet sepsis recommendations Tachycardic, borderline hypotensive, with leukocytosis and urinary source on admission Recent bladder mass resection No signs of obstruction. Bladder scan every shift (2) Sepsis: (3) Type 2 diabetes mellitus: Plan: Type II DM On semaglutide [employer]. Empagliflozin held Metformin held Basal bolus insulin while admitted. Lantus 5 units twice daily, CF 50, carb ratio 25 Goal BSG 268331 (4) HTN (hypertension): Plan: Hypertension Lisinopril temporarily held for borderline hypotension Chronic stable issues: Hyperlipidemia: Statin continued Hypothyroidism: Synthroid continued Plan DVT prophylaxis: Lovenox Disposition: Medical/surgical CODE STATUS: Full code Diet: Type II DM History of Present Illness Primary Care Provider: Ramsey Celis DO Asad is a 39-year-old male with a history of cervical stenosis, BPPV, type II DM, GERD, chronic back pain, hypothyroidism, hyperlipidemia, hypertension who had a urinary bladder mass resection performed by urology 1 month ago and who presents with dysuria, left flank pain, and abdominal pain with a fever 4 days ago. Seen at bedside. Reports he has had intermittent feelings of fullness around 3 weeks. Last fever was last night 103.1 F. Has had intermittent fevers for the last 3 weeks, some dysuria and has left abdominal and left flank pain over the last month. Denies chills overnight. Denies chest pain or chest pressure. No shortness of breath. He reports he feels much better since getting antibiotics and fluids in the ER. No hematemesis/bright red blood per rectum/hematochezia. Diminished appetite. Does have history of diabetes, takes Ozempic on Fridays. Medical History: Reviewed Medications: Reviewed Surgical History: Reviewed Family history: Reviewed Allergies: Reviewed Social History: 1.5 pack/day tobacco use, declines patch on admission. Denies alcohol use Code Status: Full code Allergies Allergy/AdvReac Type Severity Reaction Status Date / Time gabapentin Allergy Intermediate Tremors, Verified 06/27/24 06:17 "Makes me feel weird" Home Medications Medication Instructions Recorded Confirmed Type blood sugar diagnostic (Domains IncomeTouch #100 ea 12/13/21 03/15/24 Rx Verio test strips) lancets 30 gauge (OneTouch Delica #100 ea 12/13/21 03/15/24 Rx Lancets) levothyroxine 75 mcg tablet 75 mcg PO QPM #90 tabs 04/24/23 06/27/24 Rx lisinopril 20 mg tablet 20 mg PO DAILY #90 tabs 04/24/23 06/27/24 Rx atorvastatin 80 mg tablet 80 mg PO HS #90 tabs 06/09/23 06/27/24 Rx famotidine 40 mg tablet 40 mg PO BID #60 tabs 03/15/24 06/27/24 Rx metformin 1,000 mg tablet 1,000 mg PO BID Diabetes #180 tabs 05/01/24 06/27/24 Rx empagliflozin 25 mg tablet 25 mg PO DAILY #30 tabs 05/13/24 06/27/24 Rx (Jardiance) semaglutide 1 mg/dose (4 mg/3 mL) 1 mg (0.75 mL) subcut .weekly #3 mL 06/04/24 06/27/24 Rx subcutaneous pen injector metoclopramide HCl 5 mg tablet 5 mg PO DIRECTED PRN Nausea 06/27/24 06/27/24 History Past Med/Surg History Problem List (Updated 07/31/24 @ 14:09 by Jeferson Chow MD) Complicated UTI (urinary tract infection) Mass of urinary bladder Epidermal cyst (05/09/23) FINAL DIAGNOSIS In office procedure Dr. Cruz Skin, left axilla, excision: - Multiple epidermal cysts. Sebaceous cyst of axilla Foraminal stenosis of cervical region Radiculopathy, cervical Spondylosis, cervical Pineal gland cyst BPPV (benign paroxysmal positional vertigo) Seasonal allergies Conductive hearing loss of right ear with unrestricted hearing of left ear Type 2 diabetes mellitus GERD (gastroesophageal reflux disease) Chronic back pain Hypothyroidism Hyperlipidemia Hypertension Medical History BPPV (benign paroxysmal positional vertigo) Cervical spondylosis Chronic back pain GERD (gastroesophageal reflux disease) HTN (hypertension) Hyperlipidemia Hypothyroidism Neuropathy Noncompliance with medication regimen Pulmonary nodule incidental finding; monitoring Reducible right inguinal hernia Seasonal allergies Type 2 diabetes mellitus Urachal remnant Surgical History History of adenoidectomy History of oral surgery History of tonsillectomy Hx of colonoscopy Family History Grandmother (Maternal) Cancer Grandfather Myocardial infarction Lung cancer Drug abuse Cancer Mother Stroke COPD (chronic obstructive pulmonary disease) Uncle Cancer Other Hypertension Kidney disease Denies family history of Colon cancer Ovarian cancer Prostate cancer Bipolar disorder Social History Smoking Status: Current every day smoker Tobacco Type: Cigarettes Age Started Using Tobacco: 12; packs per day: 1.5; Cigarettes Per Day: 1 pack per day - advised; Second Hand Exposure: No; Do You Dip or Chew Tobacco: No; Hx Alcohol Use: Yes Alcohol type: beer and hard liquor Alcohol Intake Frequency: Monthly or Less Alcohol Intake Frequency Comment: ONCE PER MONTH Hx Substance Use: Yes (advised) Non-Prescribed Medications: Marijuana Last Used Substance Other:: 06/17/24 Preferred Language: Paraguayan Communication Ability: Effective Visual Impairment: No Limitations Hearing Ability: Normal All Round Butcher Required: No Beliefs That Will Affect Care: None marital status: Single Current Living Situation: Parent Current Living Situation Comment: w/ father current occupational status: employed and unemployed current occupation: self How many Children do You have: 0 Feels Safe at Home: Yes Childhood Exposure to Second-Hand Smoke: Yes Diet: diabetic and regular Diet Comment: regular during the past year weight has: decreased > 10 lbs Dental Care, Regularly: Yes Physical Activity Frequency: Does not Exercise Seatbelt Use: always Sunscreen Use: No Assistive Devices: Contacts, Denture - Upper and Denture - Lower Physical Exam Physical Exam: General: A&Ox3. NAD. Cooperative. HEENT: Atraumatic, normocephalic. vision/hearing grossly intact Pulm: CTAB A&P. -wheezes, -rales, -rhonchi. Symmetrical chest rise. No increased work of breathing. No respiratory distress. Cardiac: RRR, -mrg. Radial pulses intact and symmetrical. Abdominal: +LLQ TTP and L CVA tenderness without rebound/guarding. Results & Data Results & Data Vital Signs (Past 12 Hours) Vital Signs Temp Pulse Pulse Resp BP BP Pulse Ox 07/31/24 12:23 94 H 07/31/24 12:09 89 18 92 07/31/24 12:09 89 18 108/79 92 07/31/24 11:48 36.8 C 104 H 19 122/80 93 O2 Del Method 07/31/24 12:23 07/31/24 12:09 Room Air 07/31/24 12:09 Room Air 07/31/24 11:48 Room Air PG Care Time/CCT Total # of Minutes Spent Total Time Spent with Patient: Total time spent is greater than 50% in coordination of care (as documented) at patient's floor/unit and/or counseling patient: Coding Level of Care Code 56784 INT INP/OBS CARE 3/75MIN Diagnoses Complicated UTI (urinary tract infection) N39.0 Sepsis A41.9 Sepsis acute organ dysfunction status: unspecified Sepsis type: sepsis due to unspecified organism Type 2 diabetes mellitus E11.9 HTN (hypertension) I10 (2) Sepsis Sepsis acute organ dysfunction status: unspecified Sepsis type: sepsis due to unspecified organism Qualified Code(s): A41.9 - Sepsis, unspecified organism
[2024-07-31] MEDS ORDERED: VANCOMYCIN CONSULT ACTIVE PRN ×2 (14:16→17:08)
--- NOTE | 2024-07-31 15:08 | Pharmacy Report ---
Pharmacy PK ABX Note - Date of Service July 31, 2024 - Assessment and Plan Assessment 39 year old M receiving Vancomycin and Cefepime for treatment of UTI. * Day #1 of antimicrobial therapy. * Afebrile. Renal fxn actually better than normal at this time. White count of 18.5k. Lactate elevated at 2.4. Procalcitonin is 0.25. * Blood and urine cultures pending. * History of urinary bladder mass resection approximately 1 month ago. Presented with dysuria, left flank pain and fever x 4 days. * CT A/P showed bilateral pyelonephritis per radiology report. Plan Vancomycin * Loading dose: 1750 mg IV x 1 * Maintenance dose: 1000 mg IV every 8 hours * Regimen is predicted to achieve target AUC/TOMY of 400-600 mg/L.hr * Trough level ordered for: 08/02/24 Pharmacy will continue to follow and will adjust dose/frequency as necessary. Thank you. Pharmacy has transitioned to AUC monitoring for vancomycin. AUC/TOMY is the preferred PK/PD target and is associated with decreased risk of nephrotoxicity compared to traditional trough targets.
[2024-07-31] MEDS: VANCOMYCIN HCL 1,750 MG in SODIUM CHLORIDE 0.9% 500 ML IV ONE (15:15)
[2024-07-31] MEDS: CEFEPIME 2,000 MG in SYRINGE 0 ML IV STA (15:15)
[2024-07-31] MEDS ORDERED: GLUCOSE 40% GEL 15 GM TUBE PO PRN (17:08)
[2024-07-31] MEDS ORDERED: ONDANSETRON INJ 2 MG/ML 2 ML VIAL IV PRN (17:08)
[2024-07-31] MEDS ORDERED: GLUCOSE 10 TAB/TUBE PO PRN (17:08)
[2024-07-31] MEDS ORDERED: GLUCAGON FOR INJ 1 MG VIAL SQ PRN (17:08)
[2024-07-31] MEDS ORDERED: CARBOHYDRATES FOR HYPOGLYCEMIA PO PRN (17:08)
[2024-07-31] MEDS ORDERED: DEXTROSE 50% 50 ML SYRINGE IV PRN (17:08)
[2024-07-31] MEDS: ACETAMINOPHEN 325 MG TAB PO PRN (17:52)
[2024-07-31] MEDS: INSULIN ASPART PER UNIT CHARGE SC SCH (18:18)
[2024-07-31] MEDS: ENOXAPARIN INJ 40 MG/0.4 ML SYR SQ SCH (20:58)
[2024-07-31] MEDS: LEVOTHYROXINE SODIUM 75 MCG TABLET PO SCH (20:58)
[2024-07-31] MEDS: LANTUS PER UNIT CHARGE SQ SCH (20:58)
[2024-07-31] MEDS: CEFEPIME 2,000 MG in SYRINGE 0 ML IV SCH (23:16)
[2024-07-31] MEDS: VANCOMYCIN HCL 1,000 MG in SODIUM CHLORIDE 0.9% 250 ML IV SCH (23:16)
[2024-08-01 06:48] LABS: Basophils # (auto) 0.08 K/uL (0.00-0.20); Basophils % (auto) 0.4 %; Eosinophils # (auto) 0.04 K/uL (0.00-0.50); Eosinophils % (auto) 0.2 %; Hematocrit (blood only) 34.9 % (42.0-52.0); Hemoglobin 12.2 g/dl (14.0-18.0); Immature Granulocytes # (auto) 0.15 K/uL (0.01-0.20); Immature Granulocytes % (auto) 0.7 %; Lymphocytes # (auto) 2.39 K/uL (1.20-3.40); Mean Corpuscular Hemoglobin 29.8 pg (25.0-34.0); Mean Corpuscular Volume 85.1 fL (80.0-100.0); Mean Platelet Volume 8.6 fL (9.4-12.4); Monocytes # (auto) 1.65 K/uL (0.11-0.59); Monocytes % (auto) 7.6 %; Neutrophils # (auto) 17.37 K/uL (1.40-6.50); Neutrophils % (auto) 80.1 %; Platelet Count 605 K/uL (130-400); RDW Coefficient of Variation 12.4 % (11.5-14.5); RDW Standard Deviation 38.8 fL (36.4-46.3); White Blood Count 21.68 K/ul (4.8-10.8)
[2024-08-01 07:40] LABS: BUN Creatinine Ratio 8.5 (10-20); Calcium 8.4 mg/dl (8.6-10.3); Creatinine Clr Calc Pharmacy 170.1 ml/min; Est GFR (African American) 145.8 ml/min; Est GFR (Non-African American) 125.8 ml/min; Potassium 3.2 mmol/L (3.5-5.1)
[2024-08-01] MEDS: POTASSIUM CHLORIDE CRTAB 20 MEQ TABCR PO STA (09:45)
--- NOTE | 2024-08-01 17:25 | Hospitalist Progress Note ---
Date of Service August 01, 2024 Assessment & Plan (1) Complicated UTI (urinary tract infection): Plan: Presented with dysuria, left flank pain, abdominal pain, and intermittent fevers. - S/p urinary bladder mass resection with urology on 06/27/24 - Review of prior cultures with coag negative staph from a single wound specimen, otherwise no history of resistant organisms - Septic on admission with tachycardic, borderline hypotensive, with leukocytosis and urinary source. Resuscitated with IVF to meet sepsis recommendations. - Leukocytosis of 18, hyponatremic at 129, creatinine is normal at 0.76. Lactate and Procal WNL - UA is with 1+ leukocyte esterase and white blood cells, no bacteria or nitrites. - Urine culture preliminarily showing gram-negative bacilli. Continue to monitor - CTA/P with contrast: Bladder wall thickening suspicious for cystitis. Kidney enhancement suggestive of bilateral pyelo-, possible small renal abscesses without drainable fluid collection with thickening of ureters and collecting system. - Due to bilateral pyelonephritis, increased risk with recent procedural intervention and DM2, and sepsis on admission without risk factors for MDR but with evidence of abscess, antibiotics are expanded to cefepime/vancomycin on admission. - No signs of obstruction in the setting of recent bladder mass resection. Continue to BladderScan every shift - Continue cefepime and vancomycin (2) Sepsis: (3) Type 2 diabetes mellitus: Plan: Type II DM-with significant hyperglycemia causing pseudohyponatremia On semaglutide [employer]. Empagliflozin held and would not restart given its propensity to cause UTIs Metformin held Basal bolus insulin while admitted. Lantus 5 units twice daily, CF 50, carb ratio 25-pharmacy managing Goal BSG 101029 (4) HTN (hypertension): Plan: Hypertension Lisinopril temporarily held on admission for borderline hypotension Blood pressure stabilized. Lisinopril resumed Plan Hypokalemia-repleted potassium Chronic stable issues: Hyperlipidemia: Statin continued Hypothyroidism: Synthroid continued DVT prophylaxis: Lovenox CODE STATUS: Full code Admission and Anticipated Discharge Date Admission Date: July 31, 2024 Supervising Physician Co-Signing Physician Notes PA Supervision Note: I did not personally see or examine the patient today, but I verified all anderson points of LOY Grewal' assessment and plan with the following exceptions/additions: None Subjective Patient seen and evaluated at bedside. He reports he feels better today, but notes that he feels very tired and continues to have some left-sided CVA tenderness. She denies any urinary symptoms, abdominal pain, suprapubic tenderness, fever, chills. We discussed the course of his treatment plan. No additional complaints or concerns at this time. Physical Exam Physical Exam: General: No acute distress, nondiaphoretic, well-developed, well-nourished. Skin: The skin was without rashes, erythema, edema, or bruising. Cardiac: Regular rate and rhythm without murmurs gallops or rubs. Pulm: Clear to auscultation bilaterally without wheezes, rales or rhonchi. No respiratory distress. 96% on room air. Abdominal: Soft, nontender, nondistended. Bowel sounds present. Left-sided CVA tenderness present. Neuro: A&O x3. No focal neurological deficits. Results & Data Results & Data Vital Signs (Past 12 Hours) Vital Signs Temp Pulse Resp BP Pulse Ox O2 Del Method 08/01/24 15:25 37.4 C 85 18 153/88 H 96 Room Air 08/01/24 07:27 36.8 C 80 16 144/87 H 98 Room Air Laboratory Results Reviewed CBC Reviewed BMP Reviewed urine culture Reviewed blood culture PG Care Time/CCT Total # of Minutes Spent Total Time Spent with Patient: Total time spent is greater than 50% in coordination of care (as documented) at patient's floor/unit and/or counseling patient: Coding Level of Care Code 10635 SUB INP/OBS CARE 2/35MIN Diagnoses Complicated UTI (urinary tract infection) N39.0 Sepsis A41.9 Sepsis acute organ dysfunction status: unspecified Sepsis type: sepsis due to unspecified organism Type 2 diabetes mellitus E11.9 HTN (hypertension) I10 (2) Sepsis Sepsis acute organ dysfunction status: unspecified Sepsis type: sepsis due to unspecified organism Qualified Code(s): A41.9 - Sepsis, unspecified organism
--- NOTE | 2024-08-01 18:14 | Communication Note ---
Date of Service: August 01, 2024 I saw Asad at the bedside on 08/01/2024. He reports that he is feeling better than he did yesterday. He reported an episode of feeling hot overnight. He feels like he is emptying his bladder well and denies any significant pain. Leukocytosis slightly increased this morning. Creatinine decreased. Glucose is looking slightly better, but still elevated. Urine cultures with preliminary gram-negative rods, blood cultures with preliminary no growth. CT scan does not identify any focal obstruction or fluid collection outside the bladder that could be related to his recent surgery. For now, I agree with ongoing broad-spectrum antibiotics, narrowing coverage as culture data becomes available. I do not think he requires additional operative intervention from urology at this time. Would be reasonable to check PVR to make sure he is emptying his bladder well. Yoav Wilkes MD
[2024-08-01] MEDS: MoRPHine SULFATE 2 MG/ML CARP IV PRN (20:16)
[2024-08-01] MEDS ORDERED: MoRPHine SULFATE 2 MG/ML CARP IV PRN (22:12)
[2024-08-01] MEDS: MoRPHine SULFATE 2 MG/ML CARP IV STA (22:36)
[2024-08-02] MEDS: MoRPHine SULFATE 4 MG/ML 1 ML CARP\\VIAL IV PRN (00:02)
[2024-08-02 08:34] LABS: Basophils # (auto) 0.09 K/uL (0.00-0.20); Basophils % (auto) 0.5 %; Eosinophils # (auto) 0.16 K/uL (0.00-0.50); Eosinophils % (auto) 0.8 %; Hemoglobin 12.4 g/dl (14.0-18.0); Immature Granulocytes # (auto) 0.14 K/uL (0.01-0.20); Immature Granulocytes % (auto) 0.7 %; Lymphocytes # (auto) 2.57 K/uL (1.20-3.40); Lymphocytes % (auto) 13.3 %; Mean Corpuscular Hemoglobin 29.5 pg (25.0-34.0); Mean Corpuscular Hgb Conc 34.4 g/dL (32.0-36.0); Mean Corpuscular Volume 85.5 fL (80.0-100.0); Mean Platelet Volume 8.7 fL (9.4-12.4); Monocytes # (auto) 1.61 K/uL (0.11-0.59); Monocytes % (auto) 8.3 %; Neutrophils # (auto) 14.74 K/uL (1.40-6.50); Neutrophils % (auto) 76.4 %; Platelet Count 681 K/uL (130-400); RDW Coefficient of Variation 12.5 % (11.5-14.5); RDW Standard Deviation 39.1 fL (36.4-46.3); Red Blood Count 4.21 M/uL (4.70-6.10); White Blood Count 19.31 K/ul (4.8-10.8)
[2024-08-02] MEDS: VANCOMYCIN LEVEL ONE (08:36)
[2024-08-02 08:48] LABS: BUN Creatinine Ratio 5.2 (10-20); Calcium 8.7 mg/dl (8.6-10.3); Creatinine Clr Calc Pharmacy 173.1 ml/min; Est GFR (African American) 146.8 ml/min; Est GFR (Non-African American) 126.6 ml/min; Potassium 3.2 mmol/L (3.5-5.1)
[2024-08-02] MEDS: lisinopril 20 MG TAB PO SCH (09:57)
[2024-08-02] MEDS: POTASSIUM CHLORIDE / WTR 10 MEQ/100 ML PLCT IV SCH (10:12)
[2024-08-02] MEDS ORDERED: VANCOMYCIN HCL 1,500 MG in SODIUM CHLORIDE 0.9% 500 ML IV SCH (14:00)
--- NOTE | 2024-08-02 15:23 | Discharge Summary ---
Discharge Summary Date of Service August 02, 2024 Principal Dx & Hospital Course #1 = Principal Diagnosis (1) Complicated UTI (urinary tract infection): Presented with dysuria, left flank pain, abdominal pain, and intermittent fevers. Admitted for Sepsis following recent urinary bladder mass resection (06/27/24) - S/p urinary bladder mass resection with urology on 06/27/24 - Review of prior cultures with coag negative staph from a single wound specimen, otherwise no history of resistant organisms - Septic on admission with tachycardic, borderline hypotensive, with leukocytosis and urinary source. Resuscitated with IVF to meet sepsis recommendations. - On admission: leukocytosis of 18, hyponatremic at 129, lactate and procal WNL. - UA is with 1+ leukocyte esterase and white blood cells, no bacteria or nitrites. - Urine culture revealed Klebsiella pneumoniae, intermediate to ciprofloxacin, resistant to nitrofurantoin. - CTA/P with contrast: Bladder wall thickening suspicious for cystitis. Kidney enhancement suggestive of bilateral pyelo-, possible small renal abscesses without drainable fluid collection with thickening of ureters and collecting system. - Due to bilateral pyelonephritis, increased risk with recent procedural intervention and DM2, and sepsis on admission without risk factors for MDR but with evidence of abscess, antibiotics were expanded to cefepime/vancomycin on admission. - No signs of obstruction in the setting of recent bladder mass resection. BladderScan every shift and monitor PVR. - Discussed with pharmacy, and antibiotics were narrowed to Ancef 08/02 and recommend further transition to Bactrim when ready to downgrade to PO antibiotic. - Consider renal US to evaluate for abscess if leukocytosis and thrombocytosis persist. Patient left AMA 08/02/24. - Patient started becoming very agitated and aggressive with staff. He refused to explain to his RN why he was upset. I went to see the patient and to discuss the situation with the him, he reported that he asked for a Powerade and it took 2 hours for him to get it. I did explain to the patient that while this is frustrating, requests are triaged based on medical priority and his nurse may have been busy attending to other patients medically. He began yelling and cursing at me, and threatening to "hop out of bed and strangle" his RN at this time. I informed the patient that I will not tolerate him speaking to myself or other staff members in this fashion. We had a discussion about continued need for his current medical problems including UTI, bilateral pyelonephritis, possible small renal abscess, and hypokalemia. Patient reported he has "a lot of powerful friends in medicine" that will manage his current medical conditions. - He was counselled extensively by myself about the risks associated with leaving against medical advice, including: Worsening of his problems, needing to be readmitted to the hospital again for the same condition, and that his condition could become life-threatening and severe enough to result in . Mr. Crowe verbalized understanding of these risks and proceeded to leave AMA. I messaged Dr. Wilkes about him leaving AMA via [place]. No antibiotics or other treatments were prescribed on discharge. Recommend close follow-up with PCP and urology. (2) Sepsis: (3) Type 2 diabetes mellitus: Type II DM-with significant hyperglycemia causing pseudohyponatremia On semaglutide [employer]CH[employer]ISE [employer]. Empagliflozin held and would not restart given its propensity to cause UTIs Metformin held Basal bolus insulin while admitted. Lantus 5 units twice daily, CF 50, carb ratio 25-pharmacy managing Goal BSG [id number] (4) HTN (hypertension): Hypertension Lisinopril temporarily held on admission for borderline hypotension Blood pressure stabilized. Lisinopril resumed (5) Acute hypokalemia: K 3.2 on admission - K remained at 3.2 despite oral repletion - K-chloride x 6 bags ordered, 3 bags given prior to patient leaving AMA Plan Patient left AMA 08/02/24 Chronic stable issues: Hyperlipidemia: Statin continued Hypothyroidism: Synthroid continued CODE STATUS: Full code Notes For Next Care Provider Patient admitted for sepsis from urinary source following recent urinary bladder mass resection on 06/27/2024. Klebsiella pneumoniae UTI with bilateral pyelonephritis and possible small renal abscess. Additionally, persistent acute hypokalemia despite repletion. He is being treated with IV antibiotics and potassium supplementation. However, on 08/02 he became very verbally aggressive towards multiple staff members with yelling, profanities, and threats to "strangle" his RN. He left AMA. He was extensively counseled about the risks associated with leaving against medical advice, and proceeded to leave AMA anyway. Patient was NOT given prescriptions for antibiotics or any other treatments. Dr. Wilkes from urology was notified about this. Recommend close follow-up with PCP and urology. Medication Changes From Visit No medications or antibiotics were prescribed to the patient as he left AMA. Admission HPI Per Admitting Provider Asad is a 39-year-old male with a history of cervical stenosis, BPPV, type II DM, GERD, chronic back pain, hypothyroidism, hyperlipidemia, hypertension who had a urinary bladder mass resection performed by urology 1 month ago and who presents with dysuria, left flank pain, and abdominal pain with a fever 4 days ago. Seen at bedside. Reports he has had intermittent feelings of fullness around 3 weeks. Last fever was last night 103.1 F. Has had intermittent fevers for the last 3 weeks, some dysuria and has left abdominal and left flank pain over the last month. Denies chills overnight. Denies chest pain or chest pressure. No shortness of breath. He reports he feels much better since getting antibiotics and fluids in the ER. No hematemesis/bright red blood per rectum/hematochezia. Diminished appetite. Does have history of diabetes, takes Ozempic on Fridays. Medical History: Reviewed Medications: Reviewed Surgical History: Reviewed Family history: Reviewed Allergies: Reviewed Social History: 1.5 pack/day tobacco use, declines patch on admission. Denies alcohol use Code Status: Full code Admission Exam Per Admitting Provider General: A&Ox3. NAD. Cooperative. HEENT: Atraumatic, normocephalic. vision/hearing grossly intact Pulm: CTAB A&P. -wheezes, -rales, -rhonchi. Symmetrical chest rise. No increased work of breathing. No respiratory distress. Cardiac: RRR, -mrg. Radial pulses intact and symmetrical. Abdominal: +LLQ TTP and L CVA tenderness without rebound/guarding. Discharge Exam General: Agitated and verbally aggressive towards staff. No acute distress. Neuro: A&O x3. No focal neurological deficits. Discharge Plan Discharge Items Patient Disposition: Against Medical Advice Reason For Visit: COMPLICATED UTI Activity: Resume your previous activity Non-emergency contact: Primary Care Provider Follow-up/Referrals: Ramsey Celis DO [Primary Care Provider] - Pending Studies at Discharge: Yes Stand-Alone Forms: My [facility] [employer], Smoking Cessation Medications and DC Order Prescriptions: Continued (DME) lancets [OneTouch Delica Lancets] 30 gauge misc See Dose Instructions .ROUTE .MEDSUPPLY Qty: 100 1RF Dose Instruction: As directed Rx Instructions: TEST TWICE PER DAY (DME) OneTouch Verio test strips Strip See Dose Instructions .ROUTE .MEDSUPPLY Qty: 100 1RF Dose Instruction: As directed Rx Instructions: TEST TWICE PER DAY levothyroxine 75 mcg tablet 75 mcg PO QPM Qty: 90 3RF lisinopril 20 mg tablet 20 mg PO DAILY Qty: 90 3RF metformin 1,000 mg tablet 1,000 mg PO BID Qty: 180 3RF Jardiance 25 mg tablet 25 mg PO DAILY Qty: 30 2RF Rx Instructions: take 1 tablet by mouth once daily semaglutide 1 mg/dose (4 mg/3 mL) pen injector 1 mg subcut .weekly Qty: 3 2RF atorvastatin 80 mg tablet 80 mg PO HS Qty: 90 3RF famotidine 40 mg tablet 40 mg PO BID Qty: 60 2RF metoclopramide HCl 5 mg tablet 5 mg PO DIRECTED PRN (Reason: Nausea) Discharge Orders: Left Against Medical Advice (Routine); Ordered 08/02/24 Ordered By: Cata Grewal Admission Data Admit Date/Time: 07/31/24 14:15 Attending Provider: Yanet Valdivia Admit Provider: Jeferson Chow Primary Care Provider: Ramsey Celis Other Providers: Jeferson Chow Hospital Stay Data Consultations 07/31/24 13:40 ED Decision to Admit Stat Diagnostic Imagining Performed Abdomen/Pelvis CT 07/31/24 12:09 CT OF THE ABDOMEN AND PELVIS WITH CONTRAST CLINICAL HISTORY: Postoperative abdominal pain. COMPARISON STUDY: CT of the abdomen and pelvis February 28, 2024. TECHNIQUE: Following IV administration of 92 mL of Optiray, axial images of the abdomen and pelvis were obtained from the lung bases to the proximal femurs. Images were reviewed in the axial, sagittal, and coronal planes. IV contrast was administered without complication. Automated exposure control was utilized for the study. A dose lowering technique was utilized adhering to the principles of ALARA. CT DOSE: 1009.81 mGy.cm FINDINGS: Lung bases are unremarkable. No pneumatosis, free air or portal venous gas is present. Liver, spleen, adrenal glands and pancreas are unremarkable. There is no biliary or pancreatic ductal dilatation. The caliber and wall thickness of small and large bowel are normal. There is a moderate amount of stool within the ascending colon and the transverse colon. The appendix is normal. There is no lymphadenopathy. Major vasculature is patent. There is no hydronephrosis. There are no urinary calculi. There is mild bladder wall thickening. The urachal remnant shown on CT of February 28, 2024 has been resected. There is mild bilateral perinephric stranding. There is heterogeneous enhancement of the kidneys with multiple small hypoenhancing foci. A few low- attenuation foci within the kidneys are noted, the largest of which is a 1.4 cm left lower pole focus on image 156 of 361. No drainable fluid collection is present. There is trace bilateral perinephric fluid. Subtle urothelial thickening of the ureters and collecting systems. IMPRESSION: 1. Status post interval resection of the urachal remnant shown on prior CT. 2. Bladder wall thickening which may reflect cystitis. Heterogeneous enhancement of the kidneys suggestive of acute bilateral pyelonephritis. Several hypoenhancing foci, including a 1.4 cm left lower pole hypodense focus. These may reflect developing small renal abscesses. No drainable fluid collection. Mild urothelial thickening of the ureters and collecting systems. 3. No urinary calculi or hydronephrosis. 4. No bowel obstruction. Moderate amount of stool within the colon. ACT 112: Negative or not required by law. Electronically signed by: Toni Gonzalez M.D. 07/31/2024 1:35 PM Pending Results Patient Have Any Pending Studies at Discharge: Yes Supervising Physician Co-Signing Physician Notes PA Supervision Note: I did not personally see or examine the patient today, but I verified all anderson points of LOY Grewal' assessment and plan with the following exceptions/additions: None Total Time Total Time Spent Total Time Spent (In Minutes): Greater than 30 minutes spent completing this discharge process including direct patient care, medication reconciliation, documentation, review of labs and images, and coordination of care. Coding Level of Care Code 58460 INP/OBS DISCH >30 MIN Diagnoses Complicated UTI (urinary tract infection) N39.0 Sepsis A41.9 Sepsis acute organ dysfunction status: unspecified Sepsis type: sepsis due to unspecified organism Type 2 diabetes mellitus E11.9 HTN (hypertension) I10 Acute hypokalemia E87.6
[2024-08-02] MEDS ORDERED: ceFAZolin 2000MG 2,000 MG/15 ML SYR IV SCH (16:00)
== END 2024-08-02 15:25 | disposition left against medical advice (07) | DRG 862 ==
LOC: ED 11:44 → SUATTDRO 14:15 → EDINP 14:15 → 3N 18:14